=== PATIENT | female | born 1995 | race Caucasian/White ===

== ENCOUNTER 2017-05-16 19:15 | Emergency (ER) | payer OTHER ==
--- NOTE | 2017-05-16 21:51 | ED ---
Female Urogenital HPI - General Chief complaint: Urogenital Stated complaint: lower abdominal pain/early Time Seen by Provider: 05/16/17 21:20 Source: patient, RN notes reviewed Mode of arrival: ambulatory Limitations: no limitations - History of Present Illness Initial comments: This a 21-year-old female presents emergency Department chief complaint of left lower quadrant abdominal pain. Patient states she believes she is 6-7weeks and she is a 3. She has had prior ectopic with right tubal removal. Her VALANCE CUTTER is Dr. Johnson. Patient denies any nausea vomiting diarrhea. No dysuria. Patient does have some issues with constipation. Patient denies any vaginal bleeding or vaginal discharge. - Related Data Previous Rx's Medication Instructions Recorded Clindamycin HCl 300 mg PO BID #14 cap 05/16/17 Allergies Allergy/AdvReac Type Severity Reaction Status Date / Time latex Allergy Swelling Verified 05/16/17 21:44 Review of Systems ROS Statement: Those systems with pertinent positive or pertinent negative responses have been documented in the HPI. ROS Other: All systems not noted in ROS Statement are negative. Past Medical History Past Medical History: Musculoskeletal Disorder Additional Past Medical History / Comment(s): OVARIAN CYSTS, vaginal cysts. SCOLIOSIS; miscarriage, RA, ectopic. PID History of Any Multi-Drug Resistant Organisms: None Reported Additional Past Surgical History / Comment(s): DENTAL PROCEDURE, D and C, right tube removed Past Anesthesia/Blood Transfusion Reactions: No Reported Reaction Past Psychological History: Anxiety, Panic Disorder Smoking Status: Current every day smoker Past Alcohol Use History: Occasional Past Drug Use History: None Reported - Past Family History Mother Sister(s) Family Medical History: Cancer General Exam Limitations: no limitations General appearance: alert, in no apparent distress Head exam: Present: atraumatic, normocephalic, normal inspection Eye exam: Present: normal appearance, PERRL, EOMI. Absent: scleral icterus, conjunctival injection, periorbital swelling Neck exam: Present: normal inspection. Absent: tenderness, meningismus, lymphadenopathy Respiratory exam: Present: normal lung sounds bilaterally. Absent: respiratory distress, wheezes, rales, rhonchi, stridor Cardiovascular Exam: Present: regular rate, normal rhythm, normal heart sounds. Absent: systolic murmur, diastolic murmur, rubs, gallop, clicks GI/Abdominal exam: Present: soft, tenderness (Mild left lower quadrant tenderness), normal bowel sounds. Absent: distended, guarding, rebound, rigid External exam: Present: normal external exam, other (Exam performed with Harika POTTS) Speculum exam: Present: vaginal discharge (Copious white will follow or). Absent: cervical discharge, vaginal bleeding By manual exam: Present: normal by manual exam Back exam: Absent: CVA tenderness (R), CVA tenderness (L) Skin exam: Present: warm, dry, intact, normal color. Absent: rash Course Vital Signs 05/16/17 05/16/17 05/16/17 20:21 21:55 23:12 Temperature 97.7 F 98.4 F Pulse Rate 66 64 57 L Respiratory 16 18 18 Rate Blood Pressure 115/61 115/61 106/52 O2 Sat by Pulse 99 98 100 Oximetry Medical Decision Making - Medical Decision Making 21-year-old female presents for abdominal pain and . Patient had ultrasound which confirmed intrauterine 5 weeks 5 days. There is no comp case fracture seen. Patient will follow-up with Dr. Johnson her [employer] C[employer]TER. Return parameters were discussed. - Lab Data Result diagrams: 05/16/17 21:37 05/16/17 21:37 Lab Results 05/16/17 05/16/17 05/16/17 Range/Units 21:37 21:37 21:37 WBC 10.7 H (3.8-10.6) k/uL RBC 4.80 (3.80-5.40) m/uL Hgb 14.4 (11.4-16.0) gm/dL Hct 42.1 (34.0-46.0) % MCV 87.7 (80.0-100.0) fL MCH 30.0 (25.0-35.0) pg MCHC 34.2 (31.0-37.0) g/dL RDW 11.7 (11.5-15.5) % Plt Count 223 (150-450) k/uL Neutrophils % 69 % Lymphocytes % 21 % Monocytes % 6 % Eosinophils % 2 % Basophils % 0 % Neutrophils # 7.4 (1.3-7.7) k/uL Lymphocytes # 2.3 (1.0-4.8) k/uL Monocytes # 0.6 (0-1.0) k/uL Eosinophils # 0.2 (0-0.7) k/uL Basophils # 0.1 (0-0.2) k/uL Sodium 138 (137-145) mmol/L Potassium 3.8 (3.5-5.1) mmol/L Chloride 104 (98-107) mmol/L Carbon Dioxide 21 L (22-30) mmol/L Anion Gap 13 mmol/L BUN 11 (7-17) mg/dL Creatinine 0.60 (0.52-1.04) mg/dL Est GFR (CKD-EPI)AfAm >90 (>60 ml/min/1.73 sqM) Est GFR (CKD-EPI)NonAf >90 (>60 ml/min/1.73 sqM) Glucose 106 H (74-99) mg/dL Calcium 9.7 (8.4-10.2) mg/dL HCG, Quant 52459.2 mIU/mL Urine Color Urine Appearance (Clear) Urine pH (5.0-8.0) Ur Specific [place] (1.001-1.035) Urine Protein (Negative) Urine Glucose (UA) (Negative) Urine Ketones (Negative) Urine Blood (Negative) Urine Nitrite (Negative) Urine Bilirubin (Negative) Urine Urobilinogen (<2.0) mg/dL Ur Leukocyte Esterase (Negative) Blood Type O Positive Blood Type Recheck No 05/16/17 Range/Units 21:37 WBC (3.8-10.6) k/uL RBC (3.80-5.40) m/uL Hgb (11.4-16.0) gm/dL Hct (34.0-46.0) % MCV (80.0-100.0) fL MCH (25.0-35.0) pg MCHC (31.0-37.0) g/dL RDW (11.5-15.5) % Plt Count (150-450) k/uL Neutrophils % % Lymphocytes % % Monocytes % % Eosinophils % % Basophils % % Neutrophils # (1.3-7.7) k/uL Lymphocytes # (1.0-4.8) k/uL Monocytes # (0-1.0) k/uL Eosinophils # (0-0.7) k/uL Basophils # (0-0.2) k/uL Sodium (137-145) mmol/L Potassium (3.5-5.1) mmol/L Chloride (98-107) mmol/L Carbon Dioxide (22-30) mmol/L Anion Gap mmol/L BUN (7-17) mg/dL Creatinine (0.52-1.04) mg/dL Est GFR (CKD-EPI)AfAm (>60 ml/min/1.73 sqM) Est GFR (CKD-EPI)NonAf (>60 ml/min/1.73 sqM) Glucose (74-99) mg/dL Calcium (8.4-10.2) mg/dL HCG, Quant mIU/mL Urine Color Light Yellow Urine Appearance Clear (Clear) Urine pH 6.0 (5.0-8.0) Ur Specific [place] 1.010 (1.001-1.035) Urine Protein Negative (Negative) Urine Glucose (UA) Negative (Negative) Urine Ketones Negative (Negative) Urine Blood Negative (Negative) Urine Nitrite Negative (Negative) Urine Bilirubin Negative (Negative) Urine Urobilinogen <2.0 (<2.0) mg/dL Ur Leukocyte Esterase Negative (Negative) Blood Type Blood Type Recheck Disposition Clinical Impression: Abdominal with intrauterine , Bacterial vaginosis Disposition: HOME SELF-CARE Condition: Stable Instructions: Abdominal Pain in (ED) Additional Instructions: Please return to the Emergency Department if symptoms worsen or any other concerns. Prescriptions: Clindamycin HCl 300 mg PO BID #14 cap Referrals: Elena Hsu MD [Primary Care Provider] - 1-2 days Time of Disposition: 23:36
[2017-05-16 22:03] LABS: Basophils # (A) 0.1 k/uL (0-0.2); Basophils % (A) 0 %; Eosinophils # (A) 0.2 k/uL (0-0.7); Eosinophils % (A) 2 %; HCT 42.1 % (34.0-46.0); HGB 14.4 gm/dL (11.4-16.0); Lymphocytes # (A) 2.3 k/uL (1.0-4.8); Lymphocytes % (A) 21 %; MCHC 34.2 g/dL (31.0-37.0); MCV 87.7 fL (80.0-100.0); Mean Platelet Volume 8.2; Monocytes # (A) 0.6 k/uL (0-1.0); Monocytes % (A) 6 %; Neutrophils # (A) 7.4 k/uL (1.3-7.7); Neutrophils % (A) 69 %; Platelet Count 223 k/uL (150-450); RDW 11.7 % (11.5-15.5); WBC 10.7 k/uL (3.8-10.6)
[2017-05-16 22:04] LABS: Appearance,Urine Clear (Clear); Bilirubin,Urine Negative (Negative); Blood,Urine Negative (Negative); Color,Urine Light Yellow; Glucose,Urine (UA) Negative (Negative); Ketones,Urine Negative (Negative); Leukocyte Esterase,Urine Negative (Negative); Nitrite,Urine Negative (Negative); Protein,Urine Negative (Negative); Urobilinogen,Urine <2.0 mg/dL (<2.0)
[2017-05-16 22:10] LABS: Anion Gap 13 mmol/L; Blood Urea Nitrogen 11 mg/dL (7-17); Calcium 9.7 mg/dL (8.4-10.2); Carbon Dioxide 21 mmol/L (22-30); Chloride 104 mmol/L (98-107); Glucose 106 mg/dL (74-99); Potassium 3.8 mmol/L (3.5-5.1); Sodium 138 mmol/L (137-145)
[2017-05-16 22:52] LABS: HCG,Quantitative Serum 17494.2 mIU/mL
--- NOTE | 2017-05-16 23:08 | US ---
EXAMINATION TYPE: Transabdominal DATE OF EXAM: 05/10/17 COMPARISON: NONE CLINICAL HISTORY: pain. Cramping EXAM PERFORMED: Transvaginal (TV) and Transabdominal (TA) EXAM MEASUREMENTS: GESTATIONAL AGE / DATING Physician Established: Not yet established Dates by LMP: (6 weeks/6 days) EDC: 01/03/2018 Dates by First Scan: No previous this is first scan Dates by Current Scan for: (5 weeks/4 days) EDC: 01/12/2018 MATERNAL ANATOMY Uterus: 8.1x 4.8 x 6.5 cm Right Ovary: 2.5 x 1.2 x 2.6 cm Left Ovary: 3.9 x 2.0 x 2.6 cm Post CDS / Adnexa: wnl Presence of free fluid: No Presence of corpus luteal cyst: Yes Presence of subchorionic bleed: No GESTATION / SURVEY CRL: 0.2 cm (5 weeks/5 days) MSD: 1.1cm (5 weeks/2 days) Yolk Sac (normal less than 6mm): 0.3mm Heart Rate: 181 bpm Rhythm: Normal IUP: Viable IUP Date of LMP: 03/29/2017 Beta HcG (if available): Not available at this time Viable IUP seen 5wks 4Days KYARA 01/12/2018 HR 181 BPM IMPRESSION: Single living intrauterine fetus. The crown-rump length is 2 mm equal to 5 weeks 5 days. No complicat ing process seen. The KYARA is 01/12/2018.
[2017-05-16 23:44] VITALS: BP 107/62; PULSE 60; RESP 16; TEMP 97.8
[2017-05-18 14:03] LABS: C. trachomatis,PCR Negative (Neg,Equiv); Chlamydia trachomatis Source Vagina
[2017-05-18 14:08] LABS: N. gonorrhoeae,PCR Negative (Neg,Equiv); Neisseria Source Vagina
== END 2017-05-16 23:48 | disposition home or self-care (01) ==
LOC: EC 19:15
DX: O23.591 Infection of other part of genital tract in pregnancy, first trimester (principal); O99.331 Smoking (tobacco) complicating pregnancy, first trimester; F17.200 Nicotine dependence, unspecified, uncomplicated; Z3A.01 Less than 8 weeks gestation of pregnancy; Z91.040 Latex allergy status; Z87.42 Personal history of other diseases of the female genital tract
CPT/HCPCS: 36415; 76801; 76817; 80048; 81003; 84702; 85025; 86900; 86901; 87070; 87205; 87491; 87591; 87808; 99284

== ENCOUNTER 2017-06-02 10:31 | Emergency (ER) | payer OTHER ==
[2017-06-02 10:40] VITALS: BP 120/71; PULSE 74; RESP 20; TEMP 98.4
[2017-06-02] MEDS ORDERED: METOCLOPRAMIDE 5 MG/ML 2 ML VIAL IVP STA (10:51)
[2017-06-02] MEDS ORDERED: SODIUM CHLORIDE 0.9% 2,000 ML IV STA (10:51)
--- NOTE | 2017-06-02 10:53 | ED ---
Nausea/Vomiting/Diarrhea HPI - General Chief complaint: Nausea/Vomiting/Diarrhea Stated complaint: and vomiting x 3 days Time Seen by Provider: 06/02/17 10:41 Source: patient, RN notes reviewed Mode of arrival: ambulatory Limitations: no limitations - History of Present Illness Initial comments: This is a 21-year-old female presents emergency Department with chief complaint of nausea vomiting . Patient states that she is approximately 7-8 weeks states that she has been seen in the ER prior for issues. She had an ultrasound which confirmed . She states today or last few days she's had an extensive vomiting she feels dehydrated. She has an appointment with her [employer] on Tuesday. She states she is scheduled see Dr. Johnson. Patient is a 3. Patient denies any abdominal pain, vaginal bleeding, vaginal discharge. She denies any dysuria or hematuria. - Related Data Home Medications Medication Instructions Recorded Confirmed Bje-Zgsk-Idezu Acid 1 cap PO DAILY 06/02/17 06/02/17 [-U Capsule (formulary)] Previous Rx's Medication Instructions Recorded Metoclopramide [Reglan] 10 mg PO TID PRN #15 tab 06/02/17 Allergies Allergy/AdvReac Type Severity Reaction Status Date / Time latex Allergy Swelling Verified 06/02/17 10:56 Review of Systems ROS Statement: Those systems with pertinent positive or pertinent negative responses have been documented in the HPI. ROS Other: All systems not noted in ROS Statement are negative. Past Medical History Past Medical History: Musculoskeletal Disorder Additional Past Medical History / Comment(s): OVARIAN CYSTS, vaginal cysts. SCOLIOSIS; miscarriage, RA, ectopic. PID History of Any Multi-Drug Resistant Organisms: None Reported Additional Past Surgical History / Comment(s): DENTAL PROCEDURE, D and C, right tube removed Past Anesthesia/Blood Transfusion Reactions: No Reported Reaction Past Psychological History: Anxiety, Panic Disorder Smoking Status: Current some day smoker Past Alcohol Use History: Occasional Past Drug Use History: None Reported - Past Family History Mother Sister(s) Family Medical History: Cancer General Exam Limitations: no limitations General appearance: alert, in no apparent distress Head exam: Present: atraumatic, normocephalic, normal inspection Respiratory exam: Present: normal lung sounds bilaterally. Absent: respiratory distress, wheezes, rales, rhonchi, stridor Cardiovascular Exam: Present: regular rate, normal rhythm, normal heart sounds. Absent: systolic murmur, diastolic murmur, rubs, gallop, clicks GI/Abdominal exam: Present: soft, normal bowel sounds. Absent: distended, tenderness, guarding, rebound, rigid Back exam: Absent: CVA tenderness (R), CVA tenderness (L) Neurological exam: Present: alert, oriented X3, CN II-XII intact Skin exam: Present: warm, dry, intact, normal color. Absent: rash Course Vital Signs 06/02/17 10:38 Temperature 98.4 F Pulse Rate 74 Respiratory 20 Rate Blood Pressure 120/71 O2 Sat by Pulse 99 Oximetry Medical Decision Making - Medical Decision Making This is a 21-year-old female presented for nausea vomiting . Patient was hydrated, given antiemetics that she feels 100% better. She is eating crackers in the room difficulty. Patient has a follow-up appointment on Tuesday with her own joint neutrophils were discussed. - Lab Data Result diagrams: 06/02/17 11:13 06/02/17 11:13 Lab Results 06/02/17 06/02/17 06/02/17 Range/Units 11:13 11:13 11:13 WBC 11.7 H (3.8-10.6) k/uL RBC 4.96 (3.80-5.40) m/uL Hgb 15.2 (11.4-16.0) gm/dL Hct 43.5 (34.0-46.0) % MCV 87.8 (80.0-100.0) fL MCH 30.7 (25.0-35.0) pg MCHC 35.0 (31.0-37.0) g/dL RDW 11.7 (11.5-15.5) % Plt Count 216 (150-450) k/uL Neutrophils % 74 % Lymphocytes % 18 % Monocytes % 5 % Eosinophils % 2 % Basophils % 0 % Neutrophils # 8.6 H (1.3-7.7) k/uL Lymphocytes # 2.0 (1.0-4.8) k/uL Monocytes # 0.6 (0-1.0) k/uL Eosinophils # 0.2 (0-0.7) k/uL Basophils # 0.0 (0-0.2) k/uL Sodium 141 (137-145) mmol/L Potassium 3.9 (3.5-5.1) mmol/L Chloride 105 (98-107) mmol/L Carbon Dioxide 21 L (22-30) mmol/L Anion Gap 15 mmol/L BUN 7 (7-17) mg/dL Creatinine 0.60 (0.52-1.04) mg/dL Est GFR (CKD-EPI)AfAm >90 (>60 ml/min/1.73 sqM) Est GFR (CKD-EPI)NonAf >90 (>60 ml/min/1.73 sqM) Glucose 88 (74-99) mg/dL Calcium 9.9 (8.4-10.2) mg/dL Total Bilirubin 0.6 (0.2-1.3) mg/dL AST 22 (14-36) U/L ALT 24 (9-52) U/L Alkaline Phosphatase 60 (38-126) U/L Total Protein 7.3 (6.3-8.2) g/dL Albumin 4.4 (3.5-5.0) g/dL Amylase 63 (30-110) U/L Lipase 36 (23-300) U/L Urine Color Yellow Urine Appearance Clear (Clear) Urine pH 6.5 (5.0-8.0) Ur Specific [place] 1.024 (1.001-1.035) Urine Protein 1+ H (Negative) Urine Glucose (UA) Negative (Negative) Urine Ketones 2+ H (Negative) Urine Blood Negative (Negative) Urine Nitrite Negative (Negative) Urine Bilirubin Negative (Negative) Urine Urobilinogen 2.0 (<2.0) mg/dL Ur Leukocyte Esterase Small H (Negative) Urine RBC 1 (0-5) /hpf Urine WBC 2 (0-5) /hpf Ur Squamous Epith Cells 8 H (0-4) /hpf Urine Bacteria Rare H (None) /hpf Urine Mucus Few H (None) /hpf Disposition Clinical Impression: Nausea/vomiting in Disposition: HOME SELF-CARE Condition: Stable Instructions: Nausea and Vomiting in (ED) Additional Instructions: Please return to the Emergency Department if symptoms worsen or any other concerns. Prescriptions: Metoclopramide [Reglan] 10 mg PO TID PRN #15 tab PRN Reason: GERD Is patient prescribed a controlled substance at d/c from ED?: No Referrals: Elena Hsu MD [Primary Care Provider] - 1-2 days Miguelina Johnson DO [Doctor of Osteopathic Medicine] - 1-2 days Time of Disposition: 12:29
[2017-06-02 11:30] LABS: Basophils % (A) 0 %; Eosinophils # (A) 0.2 k/uL (0-0.7); Eosinophils % (A) 2 %; HCT 43.5 % (34.0-46.0); HGB 15.2 gm/dL (11.4-16.0); Lymphocytes % (A) 18 %; MCH 30.7 pg (25.0-35.0); MCV 87.8 fL (80.0-100.0); Mean Platelet Volume 7.2; Monocytes # (A) 0.6 k/uL (0-1.0); Monocytes % (A) 5 %; Neutrophils # (A) 8.6 k/uL (1.3-7.7); Neutrophils % (A) 74 %; Platelet Count 216 k/uL (150-450); RBC 4.96 m/uL (3.80-5.40); RDW 11.7 % (11.5-15.5); WBC 11.7 k/uL (3.8-10.6)
[2017-06-02 11:38] LABS: Appearance,Urine Clear (Clear); Bacteria,Urine Rare /hpf; Bilirubin,Urine Negative (Negative); Blood,Urine Negative (Negative); Color,Urine Yellow; Glucose,Urine (UA) Negative (Negative); Ketones,Urine 2+ (Negative); Leukocyte Esterase,Urine Small (Negative); Mucus,Urine Few /hpf; Nitrite,Urine Negative (Negative); PH, Urine 6.5 (5.0-8.0); Protein,Urine 1+ (Negative); RBC,Urine 1 /hpf (0-5); Specific Gravity,Urine 1.024 (1.001-1.035); Squamous Epithelial Cell,Urine 8 /hpf (0-4); WBC,Urine 2 /hpf (0-5)
[2017-06-02 11:46] LABS: ALT 24 U/L (9-52); AST 22 U/L (14-36); Albumin 4.4 g/dL (3.5-5.0); Alkaline Phosphatase 60 U/L (38-126); Amylase 63 U/L (30-110); Anion Gap 15 mmol/L; Blood Urea Nitrogen 7 mg/dL (7-17); Calcium 9.9 mg/dL (8.4-10.2); Carbon Dioxide 21 mmol/L (22-30); Chloride 105 mmol/L (98-107); Glucose 88 mg/dL (74-99); Lipase 36 U/L (23-300); Potassium 3.9 mmol/L (3.5-5.1); Sodium 141 mmol/L (137-145); Total Bilirubin 0.6 mg/dL (0.2-1.3); Total Protein 7.3 g/dL (6.3-8.2)
== END 2017-06-02 13:04 | disposition home or self-care (01) ==
LOC: EC 10:31
DX: O21.0 Mild hyperemesis gravidarum (principal); O99.331 Smoking (tobacco) complicating pregnancy, first trimester; F17.200 Nicotine dependence, unspecified, uncomplicated; Z3A.01 Less than 8 weeks gestation of pregnancy; Z91.040 Latex allergy status
CPT/HCPCS: 99284; 96374; 96361 ×2; 36415; 80053; 82150; 83690; 85025; 81001; 84702; 87086; J2765

== ENCOUNTER 2017-06-16 07:15 | Emergency (ER) | payer OTHER ==
[2017-06-16 07:26] VITALS: TEMP 98.2
[2017-06-16] MEDS ORDERED: SODIUM CHLORIDE 0.9% 1,000 ML IV STA ×2 (07:58)
[2017-06-16] MEDS ORDERED: METOCLOPRAMIDE 5 MG/ML 2 ML VIAL IVP STA (07:58)
[2017-06-16 08:11] LABS: Basophils % (A) 0 %; Eosinophils # (A) 0.2 k/uL (0-0.7); Eosinophils % (A) 2 %; HCT 41.2 % (34.0-46.0); HGB 14.7 gm/dL (11.4-16.0); Lymphocytes # (A) 1.3 k/uL (1.0-4.8); Lymphocytes % (A) 11 %; MCH 30.2 pg (25.0-35.0); MCHC 35.6 g/dL (31.0-37.0); MCV 84.8 fL (80.0-100.0); Mean Platelet Volume 7.7; Monocytes # (A) 0.5 k/uL (0-1.0); Monocytes % (A) 4 %; Neutrophils % (A) 82 %; Platelet Count 211 k/uL (150-450); RBC 4.86 m/uL (3.80-5.40); RDW 11.7 % (11.5-15.5); WBC 12.1 k/uL (3.8-10.6)
[2017-06-16 08:14] LABS: Appearance,Urine Cloudy (Clear); Bilirubin,Urine Negative (Negative); Blood,Urine Negative (Negative); Calcium Oxalate Crystals,Urine Occasional /hpf; Color,Urine Yellow; Glucose,Urine (UA) Negative (Negative); Ketones,Urine Negative (Negative); Leukocyte Esterase,Urine Moderate (Negative); Mucus,Urine Many /hpf; Nitrite,Urine Negative (Negative); PH, Urine 5.5 (5.0-8.0); Protein,Urine 1+ (Negative); RBC,Urine 2 /hpf (0-5); Specific Gravity,Urine 1.029 (1.001-1.035); Squamous Epithelial Cell,Urine 8 /hpf (0-4); Urobilinogen,Urine <2.0 mg/dL (<2.0); WBC,Urine 6 /hpf (0-5)
[2017-06-16 08:21] LABS: ALT 25 U/L (9-52); AST 27 U/L (14-36); Albumin 4.2 g/dL (3.5-5.0); Alkaline Phosphatase 62 U/L (38-126); Amylase 65 U/L (30-110); Anion Gap 15 mmol/L; Blood Urea Nitrogen 6 mg/dL (7-17); Calcium 9.3 mg/dL (8.4-10.2); Carbon Dioxide 20 mmol/L (22-30); Chloride 105 mmol/L (98-107); Glucose 93 mg/dL (74-99); Lipase 44 U/L (23-300); Potassium 3.9 mmol/L (3.5-5.1); Sodium 140 mmol/L (137-145); Total Bilirubin 0.6 mg/dL (0.2-1.3); Total Protein 6.9 g/dL (6.3-8.2)
--- NOTE | 2017-06-16 08:28 | ED ---
General Adult HPI - General Chief complaint: Nausea/Vomiting/Diarrhea Stated complaint: Vomiting-10 weeks Time Seen by Provider: 06/16/17 07:49 Source: patient, RN notes reviewed, old records reviewed Mode of arrival: ambulatory Limitations: no limitations - History of Present Illness Initial comments: 21-year-old female presents weren't surrounded a chief complaint of nausea and vomiting and diarrhea for one day. Patient with a symptoms throughout her . Worse for the past day. This is her fourth . No live births. Patient states that she sees Dr. Johnson. Has history of right oophorectomy after tubal ligation. Patient states that she has just been feeling very ill and dehydrated. She did try to take 2 regular prescribed her earlier in this . She states she continued to vomit. Patient denies any significant pain associated with this. She denies any chest pain shortness of breath. She does report that she had scant amount of vaginal bleeding today. - Related Data Home Medications Medication Instructions Recorded Confirmed Ahv-Hqvs-Kuefb Acid 1 cap PO DAILY 06/02/17 06/16/17 [-U Capsule (formulary)] Allergies Allergy/AdvReac Type Severity Reaction Status Date / Time latex Allergy Swelling Verified 06/16/17 07:37 Review of Systems ROS Statement: Those systems with pertinent positive or pertinent negative responses have been documented in the HPI. ROS Other: All systems not noted in ROS Statement are negative. Past Medical History Past Medical History: Musculoskeletal Disorder Additional Past Medical History / Comment(s): OVARIAN CYSTS, vaginal cysts. SCOLIOSIS; miscarriage, RA, ectopic. PID History of Any Multi-Drug Resistant Organisms: None Reported Additional Past Surgical History / Comment(s): DENTAL PROCEDURE, D and C, right tube removed Past Anesthesia/Blood Transfusion Reactions: No Reported Reaction Past Psychological History: Anxiety, Panic Disorder Smoking Status: Current some day smoker Past Alcohol Use History: Occasional Past Drug Use History: None Reported - Past Family History Mother Sister(s) Family Medical History: Cancer General Exam - General Exam Comments Initial Comments: 21-year-old female. Alert. No distress. Limitations: no limitations General appearance: alert, in no apparent distress Head exam: Present: atraumatic, normocephalic, normal inspection Eye exam: Present: normal appearance, PERRL, EOMI. Absent: scleral icterus, conjunctival injection, periorbital swelling ENT exam: Present: normal exam, mucous membranes moist Neck exam: Present: normal inspection. Absent: tenderness, meningismus, lymphadenopathy Respiratory exam: Present: normal lung sounds bilaterally. Absent: respiratory distress, wheezes, rales, rhonchi, stridor Cardiovascular Exam: Present: regular rate, normal rhythm, normal heart sounds. Absent: systolic murmur, diastolic murmur, rubs, gallop, clicks GI/Abdominal exam: Present: soft, normal bowel sounds. Absent: distended, tenderness, guarding, rebound, rigid Extremities exam: Present: normal inspection, full ROM, normal capillary refill. Absent: tenderness, pedal edema, joint swelling, calf tenderness Back exam: Present: normal inspection Neurological exam: Present: alert, oriented X3, CN II-XII intact Psychiatric exam: Present: normal affect, normal mood Course Vital Signs 06/16/17 07:24 Temperature 98.2 F Pulse Rate 95 Respiratory 20 Rate Blood Pressure 121/71 O2 Sat by Pulse 98 Oximetry Medical Decision Making - Lab Data Result diagrams: 06/16/17 07:30 06/16/17 07:30 Lab Results 06/16/17 06/16/17 06/16/17 Range/Units 07:30 07:30 07:30 WBC 12.1 H (3.8-10.6) k/uL RBC 4.86 (3.80-5.40) m/uL Hgb 14.7 (11.4-16.0) gm/dL Hct 41.2 (34.0-46.0) % MCV 84.8 (80.0-100.0) fL MCH 30.2 (25.0-35.0) pg MCHC 35.6 (31.0-37.0) g/dL RDW 11.7 (11.5-15.5) % Plt Count 211 (150-450) k/uL Neutrophils % 82 % Lymphocytes % 11 % Monocytes % 4 % Eosinophils % 2 % Basophils % 0 % Neutrophils # 10.0 H (1.3-7.7) k/uL Lymphocytes # 1.3 (1.0-4.8) k/uL Monocytes # 0.5 (0-1.0) k/uL Eosinophils # 0.2 (0-0.7) k/uL Basophils # 0.0 (0-0.2) k/uL Sodium 140 (137-145) mmol/L Potassium 3.9 (3.5-5.1) mmol/L Chloride 105 (98-107) mmol/L Carbon Dioxide 20 L (22-30) mmol/L Anion Gap 15 mmol/L BUN 6 L (7-17) mg/dL Creatinine 0.51 L (0.52-1.04) mg/dL Est GFR (CKD-EPI)AfAm >90 (>60 ml/min/1.73 sqM) Est GFR (CKD-EPI)NonAf >90 (>60 ml/min/1.73 sqM) Glucose 93 (74-99) mg/dL Calcium 9.3 (8.4-10.2) mg/dL Total Bilirubin 0.6 (0.2-1.3) mg/dL AST 27 (14-36) U/L ALT 25 (9-52) U/L Alkaline Phosphatase 62 (38-126) U/L Total Protein 6.9 (6.3-8.2) g/dL Albumin 4.2 (3.5-5.0) g/dL Amylase 65 (30-110) U/L Lipase 44 (23-300) U/L Urine Color Urine Appearance (Clear) Urine pH (5.0-8.0) Ur Specific [place] (1.001-1.035) Urine Protein (Negative) Urine Glucose (UA) (Negative) Urine Ketones (Negative) Urine Blood (Negative) Urine Nitrite (Negative) Urine Bilirubin (Negative) Urine Urobilinogen (<2.0) mg/dL Ur Leukocyte Esterase (Negative) Urine RBC (0-5) /hpf Urine WBC (0-5) /hpf Ur Squamous Epith Cells (0-4) /hpf Calcium Oxalate Crystal (None) /hpf Urine Mucus (None) /hpf Blood Type O Positive Blood Type Recheck No 06/16/17 Range/Units 07:30 WBC (3.8-10.6) k/uL RBC (3.80-5.40) m/uL Hgb (11.4-16.0) gm/dL Hct (34.0-46.0) % MCV (80.0-100.0) fL MCH (25.0-35.0) pg MCHC (31.0-37.0) g/dL RDW (11.5-15.5) % Plt Count (150-450) k/uL Neutrophils % % Lymphocytes % % Monocytes % % Eosinophils % % Basophils % % Neutrophils # (1.3-7.7) k/uL Lymphocytes # (1.0-4.8) k/uL Monocytes # (0-1.0) k/uL Eosinophils # (0-0.7) k/uL Basophils # (0-0.2) k/uL Sodium (137-145) mmol/L Potassium (3.5-5.1) mmol/L Chloride (98-107) mmol/L Carbon Dioxide (22-30) mmol/L Anion Gap mmol/L BUN (7-17) mg/dL Creatinine (0.52-1.04) mg/dL Est GFR (CKD-EPI)AfAm (>60 ml/min/1.73 sqM) Est GFR (CKD-EPI)NonAf (>60 ml/min/1.73 sqM) Glucose (74-99) mg/dL Calcium (8.4-10.2) mg/dL Total Bilirubin (0.2-1.3) mg/dL AST (14-36) U/L ALT (9-52) U/L Alkaline Phosphatase (38-126) U/L Total Protein (6.3-8.2) g/dL Albumin (3.5-5.0) g/dL Amylase (30-110) U/L Lipase (23-300) U/L Urine Color Yellow Urine Appearance Cloudy H (Clear) Urine pH 5.5 (5.0-8.0) Ur Specific [place] 1.029 (1.001-1.035) Urine Protein 1+ H (Negative) Urine Glucose (UA) Negative (Negative) Urine Ketones Negative (Negative) Urine Blood Negative (Negative) Urine Nitrite Negative (Negative) Urine Bilirubin Negative (Negative) Urine Urobilinogen <2.0 (<2.0) mg/dL Ur Leukocyte Esterase Moderate H (Negative) Urine RBC 2 (0-5) /hpf Urine WBC 6 H (0-5) /hpf Ur Squamous Epith Cells 8 H (0-4) /hpf Calcium Oxalate Crystal Occasional H (None) /hpf Urine Mucus Many H (None) /hpf Blood Type Blood Type Recheck Disposition Clinical Impression: Nausea and vomiting during Disposition: HOME SELF-CARE Condition: Good Instructions: Acute Nausea and Vomiting (ED) Additional Instructions: Patient has a follow-up with primary care provider. Take previously prescribed medication. Return to emergency department if any alarming signs symptoms occur. Is patient prescribed a controlled substance at d/c from ED?: No If prescribed controlled substance>3 days was MAPS reviewed?: No When asked, does pt state using other controlled substances?: No Referrals: None,Stated [Primary Care Provider] - 1-2 days Time of Disposition: 09:19
[2017-06-16 09:30] VITALS: BP 119/75; PULSE 90; RESP 18
--- NOTE | 2017-06-16 10:14 | US ---
EXAMINATION TYPE: Transabdominal DATE OF EXAM: 06/16/17 COMPARISON: US May 16, 2017 CLINICAL HISTORY: Pain. Vomiting x 1.5 days; smoker; ; prior right ectopic with right t ube removed EXAM PERFORMED: Transabdominal (TA) EXAM MEASUREMENTS: GESTATIONAL AGE / DATING Physician Established: (10 weeks/0 days) EDC: 01/12/2018 Dates by LMP: ( 11weeks/2days) EDC: 01/03/2018 Dates by First Scan: (10 weeks/0 days) EDC: 01/12/2018 Dates by Current Scan for: (10 weeks/1 day) EDC: 01/11/2018 MATERNAL ANATOMY Uterus: 11.9 x 7.6 x 7.1cm Right Ovary: 2.4 x 1.2 x 1.1cm Left Ovary: 3.0 x 2.2 x 1.6cm Post CDS / Adnexa: wnl Presence of free fluid: no Presence of corpus luteal cyst: not seen today Presence of subchorionic bleed: no GESTATION / SURVEY CRL: 3.3cm (10 weeks/1 day) Yolk Sac (normal less than 6mm): 4.3mm Heart Rate: 155 bpm Rhythm: normal IUP: Single, viable IUP Date of LMP: 01/03/2018 Beta HcG (if available): NA Single live intrauterine gestation is redemonstrated as gestational sac, yolk sac, and pole are seen. No free fluid is seen in pelvic cul-de-sac. Both ovaries are seen. There is no suspicious extraovarian adnexal masses noted. IMPRESSION: Single live intrauterine gestation is seen, mean crown-rump length is 3.3 cm corresponding to 10 week 1 day old fetus. No complicating process identified currently. Satisfactory interval progression not ed.
== END 2017-06-16 09:20 | disposition home or self-care (01) ==
LOC: EC 07:15
DX: O21.9 Vomiting of pregnancy, unspecified (principal); O20.9 Hemorrhage in early pregnancy, unspecified; O99.89 Other specified diseases and conditions complicating pregnancy, childbirth and the puerperium; R19.7 Diarrhea, unspecified; O99.331 Smoking (tobacco) complicating pregnancy, first trimester; F17.200 Nicotine dependence, unspecified, uncomplicated; Z79.899 Other long term (current) drug therapy; Z91.040 Latex allergy status; Z90.721 Acquired absence of ovaries, unilateral; Z98.51 Tubal ligation status; Z3A.10 10 weeks gestation of pregnancy
CPT/HCPCS: 36415; 86900; 86901; 80053; 82150; 83690; 85025; 81001; 84702; 76801; 99284; 96374; 96361; J2765

== ENCOUNTER → 2017-06-20 | Outpatient (CLI) | payer OTHER ==
--- NOTE | 2017-06-21 08:38 | US ---
EXAMINATION TYPE: Transabdominal DATE OF EXAM: 05/10/17 COMPARISON: US's CLINICAL HISTORY: O26.20 care for patient with recurrent. EXAM PERFORMED: Transabdominal (TA) EXAM MEASUREMENTS: GESTATIONAL AGE / DATING Physician Established: (10 weeks/4 days) EDC: 01/12/2018 Dates by LMP: (11 weeks/5 days) EDC: 01/03/2018 Dates by First Scan: (10 weeks/4 days) EDC: 01/12/2018 Dates by Current Scan for: (11 weeks/2 days) EDC: 01/07/2018 MATERNAL ANATOMY Uterus: 12.2 x 6.3 x 8.0 Right Ovary: 3.4 x 1.3 x 2.7 Left Ovary: 3.1 x 2.2 x 3.1 Post CDS / Adnexa: wnl Presence of free fluid: none GESTATION / SURVEY CRL: 4.5 (11 weeks/2 days) Yolk Sac (normal less than 6mm): 0.5 cm Heart Rate: 161 bpm Rhythm: Normal IUP: Live IUP Date of LMP: Live IUP that correlates with prior exams Uterine contraction is incidentally noted posteriorly IMPRESSION: Single live intrauterine with a calculated sonographic age of 11 weeks and 2 days and estim ated date of delivery of 01/07/2018, concordant with menstrual age.
== END | disposition home or self-care (01) ==
LOC: RADUSWWP 16:31
PROVIDERS: ATTEND Obstetrics & Gynecology
DX: O26.20 Pregnancy care for patient with recurrent pregnancy loss, unspecified trimester (principal); Z3A.11 11 weeks gestation of pregnancy
CPT/HCPCS: 76801

== ENCOUNTER 2017-07-28 11:51 | Emergency (ER) | payer OTHER ==
[2017-07-28 11:56] VITALS: BP 112/60
[2017-07-28] MEDS ORDERED: SODIUM CHLORIDE 0.9% 1,000 ML IV STA (12:01)
--- NOTE | 2017-07-28 12:18 | ED ---
Abdominal Pain HPI - General Chief Complaint: Abdominal Pain Stated Complaint: 16 weeks preg back and abdominal pain Time Seen by Provider: 07/28/17 12:01 Source: patient, RN notes reviewed Mode of arrival: ambulatory Limitations: no limitations - History of Present Illness Initial Comments: This is a 21-year-old female presents emergency Department chief complaint of abdominal pain, back pain and . Patient states she's partially 16 weeks she is a 3 and states her TUBE SKIVER is Dr. Johnson. She states her last few days to week she's had increasing pain seems to radiate from her abdomen to her back. She denies any dysuria but has urinary frequency. Denies any vaginal bleeding or vaginal discharge. Patient states that she reports no fever no chills denies any current nausea vomiting. Patient reports to having regular bowel movements denies any melena or hematochezia - Related Data Home Medications Medication Instructions Recorded Confirmed Ubs-Nfxs-Clcyk Acid 1 cap PO DAILY 06/02/17 07/28/17 [-U Capsule (formulary)] Acetaminophen [Tylenol] 650 mg PO Q4H PRN 07/28/17 07/28/17 Allergies Allergy/AdvReac Type Severity Reaction Status Date / Time latex Allergy Swelling Verified 07/28/17 12:10 Review of Systems ROS Statement: Those systems with pertinent positive or pertinent negative responses have been documented in the HPI. ROS Other: All systems not noted in ROS Statement are negative. Past Medical History Past Medical History: Musculoskeletal Disorder Additional Past Medical History / Comment(s): OVARIAN CYSTS, vaginal cysts. SCOLIOSIS; miscarriage x2, RA, ectopic. PID History of Any Multi-Drug Resistant Organisms: None Reported Additional Past Surgical History / Comment(s): DENTAL PROCEDURE, D and C, right tube removed Past Anesthesia/Blood Transfusion Reactions: No Reported Reaction Past Psychological History: Anxiety, Panic Disorder Smoking Status: Current some day smoker Past Alcohol Use History: Occasional Past Drug Use History: None Reported - Past Family History Mother Sister(s) Family Medical History: Cancer General Exam Limitations: no limitations General appearance: alert, in no apparent distress Head exam: Present: atraumatic, normocephalic, normal inspection Eye exam: Present: normal appearance, PERRL, EOMI. Absent: scleral icterus, conjunctival injection, periorbital swelling ENT exam: Present: normal exam, normal oropharynx, mucous membranes moist Neck exam: Present: normal inspection. Absent: tenderness, meningismus, lymphadenopathy Respiratory exam: Present: normal lung sounds bilaterally. Absent: respiratory distress, wheezes, rales, rhonchi, stridor Cardiovascular Exam: Present: regular rate, normal rhythm, normal heart sounds. Absent: systolic murmur, diastolic murmur, rubs, gallop, clicks GI/Abdominal exam: Present: soft, normal bowel sounds. Absent: distended, tenderness, guarding, rebound, rigid Skin exam: Present: warm, dry, intact, normal color. Absent: rash Course Vital Signs 07/28/17 11:52 Temperature 98.2 F Pulse Rate 75 Respiratory 18 Rate Blood Pressure 112/60 O2 Sat by Pulse 98 Oximetry Medical Decision Making - Medical Decision Making 21-year-old female presented emergency department for concerns for abdominal pain . Patient stands or exudates U ligament pain patient has a normal lab work, urinalysis and normal heart tones. Patient is a worried patient with her secondary to multiple prior miscarriages. - Lab Data Result diagrams: 07/28/17 12:40 07/28/17 12:40 Lab Results 07/28/17 07/28/17 07/28/17 Range/Units 12:40 12:40 12:40 WBC 12.2 H (3.8-10.6) k/uL RBC 4.39 (3.80-5.40) m/uL Hgb 13.2 (11.4-16.0) gm/dL Hct 38.0 (34.0-46.0) % MCV 86.5 (80.0-100.0) fL MCH 30.1 (25.0-35.0) pg MCHC 34.8 (31.0-37.0) g/dL RDW 12.6 (11.5-15.5) % Plt Count 231 (150-450) k/uL Neutrophils % 75 % Lymphocytes % 16 % Monocytes % 6 % Eosinophils % 1 % Basophils % 0 % Neutrophils # 9.1 H (1.3-7.7) k/uL Lymphocytes # 2.0 (1.0-4.8) k/uL Monocytes # 0.7 (0-1.0) k/uL Eosinophils # 0.2 (0-0.7) k/uL Basophils # 0.0 (0-0.2) k/uL Sodium 137 (137-145) mmol/L Potassium 4.1 (3.5-5.1) mmol/L Chloride 105 (98-107) mmol/L Carbon Dioxide 22 (22-30) mmol/L Anion Gap 10 mmol/L BUN 6 L (7-17) mg/dL Creatinine 0.60 (0.52-1.04) mg/dL Est GFR (CKD-EPI)AfAm >90 (>60 ml/min/1.73 sqM) Est GFR (CKD-EPI)NonAf >90 (>60 ml/min/1.73 sqM) Glucose 77 (74-99) mg/dL Calcium 9.8 (8.4-10.2) mg/dL Total Bilirubin 0.2 (0.2-1.3) mg/dL AST 23 (14-36) U/L ALT 27 (9-52) U/L Alkaline Phosphatase 56 (38-126) U/L Total Protein 6.8 (6.3-8.2) g/dL Albumin 4.0 (3.5-5.0) g/dL Amylase 64 (30-110) U/L Lipase 50 (23-300) U/L Urine Color Yellow Urine Appearance Clear (Clear) Urine pH 6.0 (5.0-8.0) Ur Specific [place] 1.015 (1.001-1.035) Urine Protein Negative (Negative) Urine Glucose (UA) Negative (Negative) Urine Ketones Negative (Negative) Urine Blood Negative (Negative) Urine Nitrite Negative (Negative) Urine Bilirubin Negative (Negative) Urine Urobilinogen <2.0 (<2.0) mg/dL Ur Leukocyte Esterase Large H (Negative) Urine RBC 1 (0-5) /hpf Urine WBC 2 (0-5) /hpf Ur Squamous Epith Cells 3 (0-4) /hpf Urine Mucus Rare H (None) /hpf Disposition Clinical Impression: Abdominal pain during Disposition: HOME SELF-CARE Condition: Stable Instructions: Abdominal Pain in (ED) Additional Instructions: Please return to the Emergency Department if symptoms worsen or any other concerns. Is patient prescribed a controlled substance at d/c from ED?: No Referrals: None,Stated [Primary Care Provider] - 1-2 days Time of Disposition: 13:41
[2017-07-28 13:02] LABS: Basophils % (A) 0 %; Eosinophils # (A) 0.2 k/uL (0-0.7); Eosinophils % (A) 1 %; HGB 13.2 gm/dL (11.4-16.0); Lymphocytes % (A) 16 %; MCH 30.1 pg (25.0-35.0); MCHC 34.8 g/dL (31.0-37.0); MCV 86.5 fL (80.0-100.0); Mean Platelet Volume 7.7; Monocytes # (A) 0.7 k/uL (0-1.0); Monocytes % (A) 6 %; Neutrophils # (A) 9.1 k/uL (1.3-7.7); Neutrophils % (A) 75 %; Platelet Count 231 k/uL (150-450); RBC 4.39 m/uL (3.80-5.40); RDW 12.6 % (11.5-15.5); WBC 12.2 k/uL (3.8-10.6)
[2017-07-28 13:11] LABS: ALT 27 U/L (9-52); AST 23 U/L (14-36); Alkaline Phosphatase 56 U/L (38-126); Amylase 64 U/L (30-110); Anion Gap 10 mmol/L; Blood Urea Nitrogen 6 mg/dL (7-17); Calcium 9.8 mg/dL (8.4-10.2); Carbon Dioxide 22 mmol/L (22-30); Chloride 105 mmol/L (98-107); Glucose 77 mg/dL (74-99); Lipase 50 U/L (23-300); Potassium 4.1 mmol/L (3.5-5.1); Sodium 137 mmol/L (137-145); Total Bilirubin 0.2 mg/dL (0.2-1.3); Total Protein 6.8 g/dL (6.3-8.2)
[2017-07-28 13:16] LABS: Appearance,Urine Clear (Clear); Bilirubin,Urine Negative (Negative); Blood,Urine Negative (Negative); Color,Urine Yellow; Glucose,Urine (UA) Negative (Negative); Ketones,Urine Negative (Negative); Leukocyte Esterase,Urine Large (Negative); Mucus,Urine Rare /hpf; Nitrite,Urine Negative (Negative); Protein,Urine Negative (Negative); RBC,Urine 1 /hpf (0-5); Specific Gravity,Urine 1.015 (1.001-1.035); Squamous Epithelial Cell,Urine 3 /hpf (0-4); Urobilinogen,Urine <2.0 mg/dL (<2.0); WBC,Urine 2 /hpf (0-5)
[2017-07-28 14:05] VITALS: PULSE 73; RESP 16; TEMP 98.8
== END 2017-07-28 14:15 | disposition home or self-care (01) ==
LOC: EC 11:51
DX: O26.892 Other specified pregnancy related conditions, second trimester (principal); R10.9 Unspecified abdominal pain; O99.89 Other specified diseases and conditions complicating pregnancy, childbirth and the puerperium; M54.9 Dorsalgia, unspecified; R35.0 Frequency of micturition; O99.332 Smoking (tobacco) complicating pregnancy, second trimester; F17.200 Nicotine dependence, unspecified, uncomplicated; Z79.899 Other long term (current) drug therapy; Z91.040 Latex allergy status; Z3A.16 16 weeks gestation of pregnancy
CPT/HCPCS: 36415; 80053; 81001; 82150; 83690; 85025; 96360; 99284

== ENCOUNTER 2017-11-04 13:47 | Outpatient (CLI) | payer OTHER ==
[2017-11-04 14:38] VITALS: BP 116/56; PULSE 93; RESP 16; TEMP 97.4
--- NOTE | 2017-11-08 06:56 | P.MSEPDOC ---
Presenting Problems - Arrival Data Date of Arrival on Unit: 11/04/17 Time of Arrival on Unit: 14:25 Mode of Transport: Ambulatory - Complaint OB-Reason for Admission/Chief Complaint: Decreased Movement Medical History - Information : 4 Para: 0 Term: 0 : 0 Abortions: Spontaneous or Elective: 0 Number of Living Children: 0 - Gestational Age Gestational Age by KYARA (wks/days): 30 Weeks and 1 Days - History Complications: GDM Review of Systems - Review of Systems Constitutional: No problems Breast: No problems ENT: No problems Cardiovascular: No problems Respiratory: No problems Gastrointestinal: No problems Genitourinary: No problems Musculoskeletal: No problems Neurological: No problems Skin: No problems Vital Signs - Temperature Temperature: 97.4 F Temperature Source: Temporal Artery Scan - Pulse Right Sitting Brachial Pulse Rate: 93 Pulse Assessment Method: Automatic Cuff - Respirations Respiratory Rate: 16 O2 Sat by Pulse Oximetry: 98 - Blood Pressure Right Arm Blood Pressure: 116/56 Blood Pressure Mean: 76 Blood Pressure Source: Automatic Cuff Medical Screen Scoring (Pre) - Cervical Exam Dilation: Exam Deferred Effacement: Exam Deferred Membranes: Intact - Uterine Contractions Frequency: N/A Duration: N/A Intensity: N/A - Maternal Vital Signs Maternal Temperature: N/A Maternal Blood Pressure: N/A Signs of Preeclampsia: N/A Maternal Respirations: N/A - Maternal Trauma Maternal Trauma: N/A - Assessment Baseline FHR: 145 Heart Rate - NICHD Category: Category I (Normal) = 0 NST: Reactive Position: N/A Station: N/A - Total Score Total Score (Pre): 0 - Level of Risk Level of Risk: N/A Physician Notification (Pre) - Physician Notified Physician Notified Date: 11/04/17 Physician Notified Time: 14:20 Physician/Practitioner Notifed:: Fitz Spoke With: Fitz Aggarwal Order Received: Yes Disposition - Disposition OB Disposition: Discharge to home, Written follow up instructions reviewed Discharge Date: 11/04/17 Discharge Time: 14:25 I agree with the RN Medical Screening Exam: Yes Risk & Benefit of care provided described in d/c instruction: Yes Diagnosis: DECREASED MOVEMENTS, THIRD TRIMESTER, FETUS 1
== END 2017-11-04 14:25 | disposition home or self-care (01) ==
LOC: FBPOP 13:47
PROVIDERS: ATTEND Obstetrics & Gynecology
DX: O36.8131 Decreased fetal movements, third trimester, fetus 1 (principal); Z3A.30 30 weeks gestation of pregnancy
CPT/HCPCS: 59025; G0463; 99213

== ENCOUNTER 2017-11-16 19:46 | Outpatient (CLI) | payer OTHER ==
[2017-11-16 20:17] LABS: Appearance,Urine Clear (Clear); Bilirubin,Urine Negative (Negative); Blood,Urine Negative (Negative); Color,Urine Light Yellow; Glucose,Urine (UA) Negative (Negative); Ketones,Urine Negative (Negative); Leukocyte Esterase,Urine Negative (Negative); Nitrite,Urine Negative (Negative); PH, Urine 6.5 (5.0-8.0); Protein,Urine Negative (Negative); Specific Gravity,Urine 1.004 (1.001-1.035); Urobilinogen,Urine <2.0 mg/dL (<2.0)
[2017-11-16 20:57] VITALS: BP 124/62; PULSE 85; RESP 16; TEMP 97.2
--- NOTE | 2017-11-20 10:30 | P.MSEPDOC ---
Presenting Problems - Arrival Data Date of Arrival on Unit: 11/16/17 Time of Arrival on Unit: 19:46 Mode of Transport: Ambulatory - Complaint OB-Reason for Admission/Chief Complaint: Other Comment: Pt c/o of increase in swelling in bilateral ankles, pain in right hand r/t swelling. Medical History - Information : 4 Para: 0 Term: 0 : 0 Abortions: Spontaneous or Elective: 0 Number of Living Children: 0 - Gestational Age Gestational Age by KYARA (wks/days): 36 Weeks and 2 Days - History Complications: GDM Review of Systems - Review of Systems Constitutional: No problems Breast: No problems ENT: No problems Cardiovascular: No problems Respiratory: No problems Gastrointestinal: No problems Genitourinary: No problems Musculoskeletal: No problems Neurological: No problems Skin: No problems Vital Signs - Temperature Temperature: 97.2 F Temperature Source: Temporal Artery Scan - Pulse Right Brachial Pulse Rate: 85 Pulse Assessment Method: Automatic Cuff - Respirations Respiratory Rate: 16 Oxygen Delivery Method: Room Air O2 Sat by Pulse Oximetry: 97 - Blood Pressure Right Arm Blood Pressure: 124/62 Blood Pressure Mean: 82 Blood Pressure Source: Automatic Cuff Medical Screen Scoring (Pre) - Cervical Exam Dilation: Exam Deferred Effacement: Exam Deferred Membranes: Intact - Uterine Contractions Frequency: N/A Duration: N/A Intensity: N/A - Maternal Vital Signs Maternal Temperature: N/A Maternal Blood Pressure: N/A Signs of Preeclampsia: N/A Maternal Respirations: N/A - Pain Assessment Pain Location and Character: Head Pain Scale Used: Numeric (1 - 10) Pain Intensity: 3 Pain Description: Dull Pain Frequency: Intermittent Pain Duration Units: Minutes Pain Behavior: None Exhibited - Assessment Baseline FHR: 140 Heart Rate - NICHD Category: Category I (Normal) = 0 NST: Reactive Position: N/A Station: N/A - Total Score Total Score (Pre): 0 - Level of Risk Level of Risk: Low (0-5) Physician Notification (Pre) - Physician Notified Physician Notified Date: 11/16/17 Physician Notified Time: 20:30 Physician/Practitioner Notifed:: Dr. Lieberman Spoke With: Dr. Lieberman New Order Received: Yes - Notification Comment Comment: Dr. Lieberman called and given report on pt in tr. Pt c/o. VS wnl. reactive nst. No contractions noted. U/A results. Orders recieved to d/c pt to home. Disposition - Disposition OB Disposition: Discharge to home Discharge Date: 11/16/17 Discharge Time: 20:45 I agree with the RN Medical Screening Exam: Yes Risk & Benefit of care provided described in d/c instruction: Yes Diagnosis: RELATED CONDITIONS, UNSPECIFIED, THIRD TRIMESTER
== END 2017-11-16 20:45 | disposition home or self-care (01) ==
LOC: FBPOP 19:46
PROVIDERS: ATTEND Obstetrics & Gynecology
DX: O26.93 Pregnancy related conditions, unspecified, third trimester (principal); Z3A.36 36 weeks gestation of pregnancy
CPT/HCPCS: 59025; 81003; G0463; 99213

== ENCOUNTER 2017-12-05 19:26 | Outpatient (CLI) | payer OTHER ==
[2017-12-05 19:47] LABS: Glucose,Whole Blood 151 mg/dL (75-99)
[2017-12-05 20:47] VITALS: BP 128/60; PULSE 93; RESP 16; TEMP 96.9
--- NOTE | 2017-12-09 07:29 | P.MSEPDOC ---
Presenting Problems - Arrival Data Date of Arrival on Unit: 12/05/17 Time of Arrival on Unit: 19:26 Mode of Transport: Wheelchair - Complaint OB-Reason for Admission/Chief Complaint: Decreased Movement, Other Comment: Blood sugar levels have been elevated for 2 days Medical History - Information : 4 Para: 0 Term: 0 : 0 Abortions: Spontaneous or Elective: 0 Number of Living Children: 0 - Gestational Age Gestational Age by KYARA (wks/days): 34 Weeks and 4 Days - History Complications: GDM Review of Systems - Review of Systems Constitutional: No problems Breast: No problems ENT: No problems Cardiovascular: No problems Respiratory: No problems Gastrointestinal: No problems Genitourinary: No problems Musculoskeletal: No problems Neurological: No problems Skin: No problems Vital Signs - Temperature Temperature: 96.9 F Temperature Source: Temporal Artery Scan - Pulse Right Brachial Pulse Rate: 93 Pulse Assessment Method: Automatic Cuff - Respirations Respiratory Rate: 16 Oxygen Delivery Method: Room Air - Blood Pressure Right Arm Blood Pressure: 128/60 Blood Pressure Mean: 82 Blood Pressure Source: Automatic Cuff Medical Screen Scoring (Pre) - Cervical Exam Dilation: Exam Deferred Effacement: Exam Deferred Membranes: Intact - Uterine Contractions Frequency: > 5 minutes apart = 1 Duration: N/A Intensity: N/A - Maternal Vital Signs Maternal Temperature: N/A Maternal Blood Pressure: N/A Signs of Preeclampsia: N/A Maternal Respirations: N/A - Pain Assessment Pain Scale Used: Numeric (1 - 10) Pain Intensity: 0 - Maternal Trauma Maternal Trauma: N/A - Assessment Baseline FHR: 145 Heart Rate - NICHD Category: Category I (Normal) = 0 NST: Reactive Position: N/A Station: N/A - Total Score Total Score (Pre): 1 - Level of Risk Level of Risk: Low (0-5) Physician Notification (Pre) - Physician Notified Physician Notified Date: 12/05/17 Physician Notified Time: 19:47 Physician/Practitioner Notifed:: Dr. Johnson Spoke With: Dr. Johnson New Order Received: Yes - Notification Comment Comment: Dr. Johnson given report on pt blood sugar results. in unit and verified. strip. If nst reactive pt may be discharge to home. Disposition - Disposition OB Disposition: Discharge to home Discharge Date: 12/05/17 Discharge Time: 20:10 I agree with the RN Medical Screening Exam: Yes Physician's MSE Comment: Pt had called with decreased movement. I asked her to come to triage for an NST and to check her blood sugar to make sure her own monitor was working properly. Risk & Benefit of care provided described in d/c instruction: Yes Diagnosis: DECREASED MOVEMENTS, THIRD TRIMESTER, FETUS 1
== END 2017-12-05 20:10 | disposition home or self-care (01) ==
LOC: FBPOP 19:26
PROVIDERS: ATTEND Obstetrics & Gynecology
DX: O36.8131 Decreased fetal movements, third trimester, fetus 1 (principal); Z3A.34 34 weeks gestation of pregnancy
CPT/HCPCS: 59025; G0463; 99213

== ENCOUNTER 2018-02-12 12:17 | Emergency (ER) | payer OTHER ==
[2018-02-12 12:38] VITALS: BP 116/72; PULSE 60; RESP 18; TEMP 97.7
--- NOTE | 2018-02-12 12:42 | ED ---
General Adult HPI - General Chief complaint: ENT Stated complaint: ENT Time Seen by Provider: 02/12/18 12:17 Source: patient, RN notes reviewed Mode of arrival: ambulatory Limitations: no limitations - History of Present Illness Initial comments: This is a 22-year-old female who came in to bring her baby to the hospital and states since she is here she may as well as will be seen as well. Patient complains of occasional cough no sputum production no difficulty breathing shortness of breath. Patient complains of being stuffy over the last few days and has a sore throat that has gotten a little bit worse as of today. Patient denies any chest pain. Patient denies any palpitations. Patient denies any fever chills. Patient states she does have a little dysuria as well. Patient denies any abdominal pain. Patient denies any vomiting or diarrhea. Patient denies any lightheadedness dizziness. Patient denies any rashes lesions or areas of erythema - Related Data Home Medications Medication Instructions Recorded Confirmed INSULIN LISPRO (humaLOG) [humaLOG] 13 units SQ AC-BRKFST 11/04/17 02/12/18 INSULIN LISPRO (humaLOG) [humaLOG] 14 units SQ AC-LUNCH 02/12/18 02/12/18 INSULIN LISPRO (humaLOG) [humaLOG] 16 units SQ AC-SUPPER 02/12/18 02/12/18 Allergies Allergy/AdvReac Type Severity Reaction Status Date / Time latex Allergy Swelling Verified 02/12/18 12:50 Review of Systems ROS Statement: Those systems with pertinent positive or pertinent negative responses have been documented in the HPI. ROS Other: All systems not noted in ROS Statement are negative. Past Medical History Past Medical History: Diabetes Mellitus, Musculoskeletal Disorder Additional Past Medical History / Comment(s): OVARIAN CYSTS, vaginal cysts. SCOLIOSIS; miscarriage x2, RA, ectopic. PID History of Any Multi-Drug Resistant Organisms: None Reported Past Surgical History: No Surgical Hx Reported Additional Past Surgical History / Comment(s): DENTAL PROCEDURE, D and C, right tube removed Past Anesthesia/Blood Transfusion Reactions: No Reported Reaction Past Psychological History: Anxiety, Panic Disorder Smoking Status: Former smoker Past Alcohol Use History: Occasional Past Drug Use History: None Reported - Past Family History Mother Sister(s) Family Medical History: Cancer General Exam - General Exam Comments Initial Comments: GENERAL: Patient is well-developed and well-nourished. Patient is nontoxic and well- hydrated and is in no acute distress. ENT: Neck is soft and supple. No significant lymphadenopathy is noted. Oropharynx is clear. Moist mucous membranes. Neck has full range of motion without eliciting any pain. EYES: The sclera were anicteric and conjunctiva were pink and moist. Extraocular movements were intact and pupils were equal round and reactive to light. Eyelids were unremarkable. PULMONARY: Unlabored respirations. Good breath sounds bilaterally. No audible rales rhonchi or wheezing was noted. CARDIOVASCULAR: There is a regular rate and rhythm without any murmurs gallops or rubs. ABDOMEN: Soft and nontender with normal bowel sounds. No palpable organomegaly was noted. There is no palpable pulsatile mass. SKIN: Skin is clear with no lesions or rashes and otherwise unremarkable. NEUROLOGIC: Patient is alert and oriented x3. Cranial nerves II through XII are grossly intact. Motor and sensory are also intact. Normal speech, volume and content. Symmetrical smile. MUSCULOSKELETAL: Normal extremities with adequate strength and full range of motion. LYMPHATICS: No significant lymphadenopathy is noted PSYCHIATRIC: Normal psychiatric evaluation. Limitations: no limitations Course Vital Signs 02/12/18 12:31 Temperature 97.7 F Pulse Rate 60 Respiratory 18 Rate Blood Pressure 116/72 O2 Sat by Pulse 96 Oximetry Medical Decision Making - Medical Decision Making Strep was negative - Lab Data Lab Results 02/12/18 02/12/18 Range/Units 12:42 12:42 Urine Color Yellow Urine Appearance Cloudy H (Clear) Urine pH 5.5 (5.0-8.0) Ur Specific [place] 1.017 (1.001-1.035) Urine Protein Negative (Negative) Urine Glucose (UA) Negative (Negative) Urine Ketones Negative (Negative) Urine Blood Negative (Negative) Urine Nitrite Negative (Negative) Urine Bilirubin Negative (Negative) Urine Urobilinogen <2.0 (<2.0) mg/dL Ur Leukocyte Esterase Moderate H (Negative) Urine RBC 2 (0-5) /hpf Urine WBC 8 H (0-5) /hpf Ur Squamous Epith Cells 7 H (0-4) /hpf Urine Mucus Rare H (None) /hpf Group A Strep Rapid Negative (Negative) Disposition Clinical Impression: Upper respiratory infection Disposition: HOME SELF-CARE Condition: Good Instructions: Upper Respiratory Infection (ED) Is patient prescribed a controlled substance at d/c from ED?: No Referrals: Elena Hsu MD [Primary Care Provider] - 1-2 days Time of Disposition: 14:04
[2018-02-12 13:42] LABS: Appearance,Urine Cloudy (Clear); Bilirubin,Urine Negative (Negative); Blood,Urine Negative (Negative); Color,Urine Yellow; Glucose,Urine (UA) Negative (Negative); Ketones,Urine Negative (Negative); Leukocyte Esterase,Urine Moderate (Negative); Mucus,Urine Rare /hpf; Nitrite,Urine Negative (Negative); PH, Urine 5.5 (5.0-8.0); Protein,Urine Negative (Negative); RBC,Urine 2 /hpf (0-5); Specific Gravity,Urine 1.017 (1.001-1.035); Squamous Epithelial Cell,Urine 7 /hpf (0-4); Urobilinogen,Urine <2.0 mg/dL (<2.0); WBC,Urine 8 /hpf (0-5)
== END 2018-02-12 14:22 | disposition home or self-care (01) ==
LOC: EC 12:17
DX: J06.9 Acute upper respiratory infection, unspecified (principal); R30.0 Dysuria; E11.9 Type 2 diabetes mellitus without complications; Z87.42 Personal history of other diseases of the female genital tract; Z87.891 Personal history of nicotine dependence; Z79.4 Long term (current) use of insulin; Z91.040 Latex allergy status
CPT/HCPCS: 81001; 87081; 87430; 99283

== ENCOUNTER → 2018-09-30 | Outpatient (CLI) | payer OTHER | END | disposition home or self-care (01) | LOC: LABWHC1 10:13 | PROVIDERS: ATTEND Obstetrics & Gynecology | DX: N92.6 Irregular menstruation, unspecified (principal) | CPT/HCPCS: 36415; 84702 ==

== ENCOUNTER 2018-12-24 12:47 | Emergency (ER) | payer OTHER ==
[2018-12-24 12:53] VITALS: BP 102/64; PULSE 65; RESP 20; TEMP 97.9
--- NOTE | 2018-12-24 13:38 | ED ---
URI HPI - General Chief Complaint: Upper Respiratory Infection Stated Complaint: cough, SOB Time Seen by Provider: 12/24/18 13:04 Source: patient Mode of arrival: ambulatory Limitations: no limitations - History of Present Illness Initial Comments: Patient is a 23-year-old female presenting to the emergency Department with complaints of a cough that has been ongoing for 2-3 weeks. Patient states she also has some pressure on her chest when she is coughing. Patient states she feels increase in fatigue and has not been eating very much. Patient is concerned that she has pneumonia. Patient denies any fever, chills, chest pain, shortness of breath. She has no pertinent past medical history. Patient has no other complaints at this time. Upon arrival to the ER, vital signs are stable. - Related Data Home Medications Medication Instructions Recorded Confirmed INSULIN LISPRO (humaLOG) [humaLOG] 13 units SQ AC-BRKFST 11/04/17 02/12/18 INSULIN LISPRO (humaLOG) [humaLOG] 14 units SQ AC-LUNCH 02/12/18 02/12/18 INSULIN LISPRO (humaLOG) [humaLOG] 16 units SQ AC-SUPPER 02/12/18 02/12/18 Previous Rx's Medication Instructions Recorded Azithromycin [Zithromax Z-pack] 0 mg PO DIRECTED #1 pack 12/24/18 predniSONE 20 mg PO BID 5 Days #10 tab 12/24/18 Allergies Allergy/AdvReac Type Severity Reaction Status Date / Time latex Allergy Swelling Verified 12/24/18 12:53 Review of Systems ROS Statement: Those systems with pertinent positive or pertinent negative responses have been documented in the HPI. ROS Other: All systems not noted in ROS Statement are negative. Past Medical History Past Medical History: Diabetes Mellitus, Musculoskeletal Disorder Additional Past Medical History / Comment(s): OVARIAN CYSTS, vaginal cysts. SCOLIOSIS; miscarriage x2, RA, ectopic. PID History of Any Multi-Drug Resistant Organisms: None Reported Past Surgical History: No Surgical Hx Reported Additional Past Surgical History / Comment(s): DENTAL PROCEDURE, D and C, right tube removed Past Anesthesia/Blood Transfusion Reactions: No Reported Reaction Past Psychological History: Anxiety, Panic Disorder Smoking Status: Former smoker Past Alcohol Use History: Occasional Past Drug Use History: None Reported - Past Family History Mother Sister(s) Family Medical History: Cancer General Exam - General Exam Comments Initial Comments: GENERAL: Well-appearing, well-nourished and in no acute distress. HEAD: Atraumatic, normocephalic. EYES: Pupils equal round and reactive to light, extraocular movements intact, sclera anicteric, conjunctiva are normal. ENT: TMs normal, nares patent, oropharynx clear without exudates. Moist mucous membranes. NECK: Normal range of motion, supple without lymphadenopathy or JVD. LUNGS: Breath sounds clear to auscultation bilaterally and equal. No wheezes rales or rhonchi. HEART: Regular rate and rhythm without murmurs, rubs or gallops. ABDOMEN: Soft, nontender, normoactive bowel sounds. No guarding, no rebound. No masses appreciated. EXTREMITIES: Normal range of motion, no pitting or edema. No clubbing or cyanosis. NEUROLOGICAL: Cranial nerves II through XII grossly intact. Normal speech, normal gait. PSYCH: Normal mood, normal affect. SKIN: Warm, Dry, normal turgor, no rashes or lesions noted. Limitations: no limitations Course Vital Signs 12/24/18 12:49 Temperature 97.9 F Pulse Rate 65 Respiratory 20 Rate Blood Pressure 102/64 O2 Sat by Pulse 100 Oximetry Medical Decision Making - Medical Decision Making Patient is a 23-year-old female presenting with a cough 2-3 weeks. Vital signs are stable, afebrile. Exam is unremarkable. Chest x-ray shows no acute processes. Discussed with patient this is also likely an upper respiratory infection but given the length of his symptoms patient will be started on Z-Kevin as well as steroids for her symptoms. Patient is in agreement with this plan of care. She is stable for discharge at this time. Return parameters were discussed with the patient she verbalized understanding. Case discussed with Dr. Cedeno. Disposition Clinical Impression: Acute upper respiratory infection Disposition: HOME SELF-CARE Condition: Stable Instructions (If sedation given, give patient instructions): Upper Respiratory Infection (ED) Additional Instructions: Please return to the Emergency Department if symptoms worsen or any other concerns. Take antibiotics and steroids as prescribed. Follow-up with PCP as symptoms persist after one week. Prescriptions: predniSONE 20 mg PO BID 5 Days #10 tab Azithromycin [Zithromax Z-pack] 0 mg PO DIRECTED #1 pack Is patient prescribed a controlled substance at d/c from ED?: No Referrals: None,Stated [Primary Care Provider] - 1-2 days
--- NOTE | 2018-12-24 14:02 | XR ---
EXAMINATION TYPE: XR chest 2V DATE OF EXAM ORDERED: 12/24/2018 HISTORY: cough x 2 wks. REFERENCE: None. FINDINGS: The lungs are clear. Pleural spaces are clear. Heart size is normal. IMPRESSION: NORMAL CHEST.
== END 2018-12-24 14:26 | disposition home or self-care (01) ==
LOC: EC 12:47
DX: J06.9 Acute upper respiratory infection, unspecified (principal); E11.9 Type 2 diabetes mellitus without complications; Z87.891 Personal history of nicotine dependence; Z79.4 Long term (current) use of insulin; Z91.040 Latex allergy status
CPT/HCPCS: 71046; 99284

== ENCOUNTER 2019-02-28 22:11 | Emergency (ER) | payer OTHER ==
[2019-02-28] MEDS ORDERED: SODIUM CHLORIDE 0.9% 500 ML 500 ML IV ONE (22:40)
[2019-02-28 23:12] LABS: Basophils # (A) 0.2 k/uL (0-0.2); Basophils % (A) 2 %; Eosinophils # (A) 0.2 k/uL (0-0.7); Eosinophils % (A) 3 %; HGB 15.3 gm/dL (11.4-16.0); Lymphocytes # (A) 2.7 k/uL (1.0-4.8); Lymphocytes % (A) 35 %; MCHC 33.2 g/dL (31.0-37.0); MCV 90.4 fL (80.0-100.0); Mean Platelet Volume 8.3; Monocytes # (A) 0.5 k/uL (0-1.0); Monocytes % (A) 6 %; Neutrophils % (A) 52 %; Platelet Count 227 k/uL (150-450); RBC 5.09 m/uL (3.80-5.40); RDW 11.8 % (11.5-15.5); WBC 7.8 k/uL (3.8-10.6)
[2019-02-28 23:31] LABS: ALT 17 U/L (4-34); AST 23 U/L (14-36); African American GFR (CKD) >90 (>60 ml/min/1.73 sqM); Albumin 5.1 g/dL (3.5-5.0); Alkaline Phosphatase 71 U/L (38-126); Anion Gap 10 mmol/L; Blood Urea Nitrogen 11 mg/dL (7-17); Calcium 9.7 mg/dL (8.4-10.2); Carbon Dioxide 26 mmol/L (22-30); Chloride 105 mmol/L (98-107); Glucose 87 mg/dL (74-99); Non-African American GFR(CKD) >90 (>60 ml/min/1.73 sqM); Sodium 141 mmol/L (137-145); Total Bilirubin 0.4 mg/dL (0.2-1.3); Total Protein 8.3 g/dL (6.3-8.2)
--- NOTE | 2019-02-28 23:39 | US ---
EXAMINATION TYPE: US transvaginal DATE OF EXAM: 02/28/2019 COMPARISON: US CLINICAL HISTORY: vaginal bleeding, pain. Pain and vaginal bleeding x 6 days. Hx ovarian cysts, PID. Rt tube removed in 2014 due to ectopic . Hx 2 miscarriages. Endometriosis. . TECHNIQUE: Transvaginal. Date of LMP: 02/12/2019 EXAM MEASUREMENTS: Uterus: 8.7 x 4.9 x 3.4 cm Endometrial Stripe: Limited. Measured at 0.61 cm Right Ovary: 3.5 x 2.1 x 2.2 cm Left Ovary: 3.1 x 2.4 x 1.9 cm 1. Uterus: Anteverted Appears slightly heterogeneous. 2. Endometrium: Indistinct hyperechoic area seen measurin.5 x 0.5 x 0.1 cm. Limited endometrial measurement. 3. Right Ovary: Multiple anechoic areas seen, largest measures: 0.8 x 1.0 x 0.8 cm. 4. Left Ovary: Multiple anechoic areas seen, largest measures: 0.7 x 0.7 x 0.5 cm. Spectral, color and waveform doppler imaging shows arterial and venous flow within the ovaries. 5. Bilateral Adnexa: Appear to be wnl 6. Posterior cul-de-sac: Fluid is seen IMPRESSION: No adnexal mass or free fluid. Small follicular ovarian cysts. No evidence of ovarian torsion. No mimi rine abnormality seen.
[2019-02-28 23:57] LABS: Appearance,Urine Cloudy (Clear); Bacteria,Urine Rare /hpf; Bilirubin,Urine Negative (Negative); Blood,Urine Small (Negative); Color,Urine Yellow; Glucose,Urine (UA) Negative (Negative); Hyaline Casts,Urine 4 /lpf (0-2); Ketones,Urine Negative (Negative); Leukocyte Esterase,Urine Large (Negative); Mucus,Urine Rare /hpf; Nitrite,Urine Negative (Negative); PH, Urine 5.5 (5.0-8.0); Protein,Urine Negative (Negative); RBC,Urine 2 /hpf (0-5); Specific Gravity,Urine 1.024 (1.001-1.035); Squamous Epithelial Cell,Urine 12 /hpf (0-4); Urobilinogen,Urine <2.0 mg/dL (<2.0); WBC,Urine 30 /hpf (0-5)
[2019-03-01] MEDS ORDERED: cefTRIAXone 250 MG VIAL IM STA (00:24)
[2019-03-01] MEDS ORDERED: DOXYCYCLINE 100 MG CAP PO STA (00:24)
--- NOTE | 2019-03-01 00:32 | ED ---
General Adult HPI - General Chief complaint: Vaginal Bleeding Stated complaint: vag bleeding/abd pain Time Seen by Provider: 02/28/19 22:32 Source: patient, RN notes reviewed, old records reviewed Mode of arrival: ambulatory Limitations: no limitations - History of Present Illness Initial comments: 23-year-old female patient past medical history of pelvic inflammatory disease, ectopic resulting in salpingotomy presents ED for chief complaint of vag inal bleeding for the last 6 days. Patient has a mild amount of suprapubic discomfort. Patient reports that does have endometriosis at baseline in this discomfort is around her baseline for her. She reports that she is mostly concerned about the vaginal bleeding for the last 4 days. Reports that has now been saturating a pad per day. Denies poor that she contacted her [employer] she does have an appointment scheduled in March. Reports that she does have a new sexual partner and does engage in the presents with 6. Denies any concern for STI at this time. Denies any other complaints at this time. Systemic: Pt denies fatigue, fever/chills, rash. Pt denies weakness, night sweats, weight loss. Neuro: Pt denies headache, visual disturbances, syncope or pre-syncope. HEENT: Pt denies ocular discharge or irritation, otalgia, rhinorrhea, pharyngitis or notable lymphadenopathy. Cardiopulmonary: Pt denies chest pain, SOB, heart palpitations, dyspnea on exertion. Abdominal/GI: Pt denies n/v/d. : Pt denies dysuria, burning w/ urination, frequency/urgency. Denies new onset urinary or bowel incontinence. MSK: Pt denies myalgia, loss of strength or function in extremities. Neuro: Pt denies new onset weakness, paresthesias. - Related Data Home Medications Medication Instructions Recorded Confirmed INSULIN LISPRO (humaLOG) [humaLOG] 13 units SQ AC-BRKFST 11/04/17 02/12/18 INSULIN LISPRO (humaLOG) [humaLOG] 14 units SQ AC-LUNCH 02/12/18 02/12/18 INSULIN LISPRO (humaLOG) [humaLOG] 16 units SQ AC-SUPPER 02/12/18 02/12/18 Previous Rx's Medication Instructions Recorded Azithromycin [Zithromax Z-pack] 0 mg PO DIRECTED #1 pack 12/24/18 predniSONE [Deltasone] 20 mg PO BID 5 Days #10 tab 11/17/19 Doxycycline [Vibramycin] 100 mg PO BID 14 Days #28 cap 03/01/19 Allergies Allergy/AdvReac Type Severity Reaction Status Date / Time latex Allergy Swelling Verified 02/28/19 22:26 Review of Systems ROS Statement: Those systems with pertinent positive or pertinent negative responses have been documented in the HPI. ROS Other: All systems not noted in ROS Statement are negative. Past Medical History Past Medical History: Diabetes Mellitus, Musculoskeletal Disorder Additional Past Medical History / Comment(s): OVARIAN CYSTS, vaginal cysts. SCOLIOSIS; miscarriage x2, RA, ectopic. PID History of Any Multi-Drug Resistant Organisms: None Reported Past Surgical History: No Surgical Hx Reported Additional Past Surgical History / Comment(s): DENTAL PROCEDURE, D and C, right tube removed Past Anesthesia/Blood Transfusion Reactions: No Reported Reaction Past Psychological History: Anxiety, Panic Disorder Smoking Status: Former smoker Past Alcohol Use History: Occasional Past Drug Use History: None Reported - Past Family History Mother Sister(s) Family Medical History: Cancer General Exam - General Exam Comments Initial Comments: Constitutional: NAD, AOX3, Pt has pleasant affect. HEENT: NC/AT, trachea midline, neck supple, no lymphadenopathy. Posterior pharynx non erythematous, without exudates. External ears appear normal, without discharge. Mucous membranes moist. Eyes PERRLA, EOM intact. There is no scleral icterus. No pallor noted. Cardiopulmonary: RRR, no murmurs, rubs or gallops, no JVD noted. Lungs CTAB in anterior and posterior mcneil. No peripheral edema. Abdominal exam: Abdomen soft and non-distended. Abdomen non-tender to palpation in all 4 quadrants. Bowel sounds active in LLQ. No hepatosplenomegaly. No ecchymosis Neuro: CN II-XII grossly intact. No nuchal rigidity. No raccon eyes, no goldman sign, no hemotympanum. No cervical spinal tenderness. MSK: No posterior calf tenderness bilaterally, homans sign negative bilaterally. Posterior tibialis and radial pulse +2 bilaterally. Sensation intact in upper and lower extremities. Full active ROM in upper and lower extremities, 5/5 stregnth. Pelvic: Small amount of discharge noted from cervix, very mild amount of cervical motion tenderness present. No other abnormal findings, no ulcerations or lesions noted. Chaperogned by KATLYN Ruiz. Limitations: no limitations Course Vital Signs 02/28/19 22:24 Temperature 98.0 F Pulse Rate 73 Respiratory 20 Rate Blood Pressure 104/70 O2 Sat by Pulse 99 Oximetry Medical Decision Making - Medical Decision Making 23-year-old female patient past medical history of pelvic inflammatory disease, ectopic resulting in salpingotomy presents ED for chief complaint of vaginal bleeding for the last 6 days. Patient has a mild amount of suprapubic discomfort. Patient reports that does have endometriosis at baseline in this discomfort is around her baseline for her. She reports that she is mostly concerned about the vaginal bleeding for the last 4 days. Reports that has now been saturating a pad per day. Denies poor that she contacted her [employer] she does have an appointment scheduled in March. Reports that she does have a new sexual partner and does engage in the presents with 6. Denies any concern for STI at this time. Denies any other complaints at this time. Pt VSS, af ebrile. Physical exam displayed: Small amount of discharge noted from cervix, very mild amount of cervical motion tenderness present. No other abnormal findings, no ulcerations or lesions noted. Chaperogned by KATLYN Ruiz. Abdomen is soft, nontender. Laboratory investigations revealed negative hCG, urine with large leukocyte esterase, 30 white blood cells, 12 squamous epithelial cells. Ultrasound transvaginally displayed no adnexal masses or free fluid. Small follicular ovarian cyst. No evidence of torsion. No urinary abnormality seen. Shared decision making, patient will be treated for pelvic inflammatory disease. Administered Rocephin and doxycycline in ED. Patient will close outpatient follow-up with [employer] tomorrow. Return to ER if condition worsens. Case discussed in depth with Dr. Arteaga. - Lab Data Result diagrams: 02/28/19 22:51 02/28/19 22:51 Lab Results 02/28/19 02/28/19 02/28/19 Range/Units 22:50 22:50 22:51 WBC 7.8 (3.8-10.6) k/uL RBC 5.09 (3.80-5.40) m/uL Hgb 15.3 (11.4-16.0) gm/dL Hct 46.0 (34.0-46.0) % MCV 90.4 (80.0-100.0) fL MCH 30.0 (25.0-35.0) pg MCHC 33.2 (31.0-37.0) g/dL RDW 11.8 (11.5-15.5) % Plt Count 227 (150-450) k/uL Neutrophils % 52 % Lymphocytes % 35 % Monocytes % 6 % Eosinophils % 3 % Basophils % 2 % Neutrophils # 4.0 (1.3-7.7) k/uL Lymphocytes # 2.7 (1.0-4.8) k/uL Monocytes # 0.5 (0-1.0) k/uL Eosinophils # 0.2 (0-0.7) k/uL Basophils # 0.2 (0-0.2) k/uL Sodium (137-145) mmol/L Potassium (3.5-5.1) mmol/L Chloride (98-107) mmol/L Carbon Dioxide (22-30) mmol/L Anion Gap mmol/L BUN (7-17) mg/dL Creatinine (0.52-1.04) mg/dL Est GFR (CKD-EPI)AfAm (>60 ml/min/1.73 sqM) Est GFR (CKD-EPI)NonAf (>60 ml/min/1.73 sqM) Glucose (74-99) mg/dL Calcium (8.4-10.2) mg/dL Total Bilirubin (0.2-1.3) mg/dL AST (14-36) U/L ALT (4-34) U/L Alkaline Phosphatase (38-126) U/L Total Protein (6.3-8.2) g/dL Albumin (3.5-5.0) g/dL Urine Color Yellow Urine Appearance Cloudy H (Clear) Urine pH 5.5 (5.0-8.0) Ur Specific [place] 1.024 (1.001-1.035) Urine Protein Negative (Negative) Urine Glucose (UA) Negative (Negative) Urine Ketones Negative (Negative) Urine Blood Small H (Negative) Urine Nitrite Negative (Negative) Urine Bilirubin Negative (Negative) Urine Urobilinogen <2.0 (<2.0) mg/dL Ur Leukocyte Esterase Large H (Negative) Urine RBC 2 (0-5) /hpf Urine WBC 30 H (0-5) /hpf Ur Squamous Epith Cells 12 H (0-4) /hpf Urine Bacteria Rare H (None) /hpf Hyaline Casts 4 H (0-2) /lpf Urine Mucus Rare H (None) /hpf Urine HCG, Qual Not Detected (Not Detectd) 02/28/19 Range/Units 22:51 WBC (3.8-10.6) k/uL RBC (3.80-5.40) m/uL Hgb (11.4-16.0) gm/dL Hct (34.0-46.0) % MCV (80.0-100.0) fL MCH (25.0-35.0) pg MCHC (31.0-37.0) g/dL RDW (11.5-15.5) % Plt Count (150-450) k/uL Neutrophils % % Lymphocytes % % Monocytes % % Eosinophils % % Basophils % % Neutrophils # (1.3-7.7) k/uL Lymphocytes # (1.0-4.8) k/uL Monocytes # (0-1.0) k/uL Eosinophils # (0-0.7) k/uL Basophils # (0-0.2) k/uL Sodium 141 (137-145) mmol/L Potassium 4.0 (3.5-5.1) mmol/L Chloride 105 (98-107) mmol/L Carbon Dioxide 26 (22-30) mmol/L Anion Gap 10 mmol/L BUN 11 (7-17) mg/dL Creatinine 0.82 (0.52-1.04) mg/dL Est GFR (CKD-EPI)AfAm >90 (>60 ml/min/1.73 sqM) Est GFR (CKD-EPI)NonAf >90 (>60 ml/min/1.73 sqM) Glucose 87 (74-99) mg/dL Calcium 9.7 (8.4-10.2) mg/dL Total Bilirubin 0.4 (0.2-1.3) mg/dL AST 23 (14-36) U/L ALT 17 (4-34) U/L Alkaline Phosphatase 71 (38-126) U/L Total Protein 8.3 H (6.3-8.2) g/dL Albumin 5.1 H (3.5-5.0) g/dL Urine Color Urine Appearance (Clear) Urine pH (5.0-8.0) Ur Specific [place] (1.001-1.035) Urine Protein (Negative) Urine Glucose (UA) (Negative) Urine Ketones (Negative) Urine Blood (Negative) Urine Nitrite (Negative) Urine Bilirubin (Negative) Urine Urobilinogen (<2.0) mg/dL Ur Leukocyte Esterase (Negative) Urine RBC (0-5) /hpf Urine WBC (0-5) /hpf Ur Squamous Epith Cells (0-4) /hpf Urine Bacteria (None) /hpf Hyaline Casts (0-2) /lpf Urine Mucus (None) /hpf Urine HCG, Qual (Not Detectd) Disposition Clinical Impression: PID (pelvic inflammatory disease), Vaginal bleeding Disposition: HOME SELF-CARE Condition: Stable Instructions (If sedation given, give patient instructions): Pelvic Inflammatory Disease (ED), Dysfunctional Uterine Bleeding (ED) Additional Instructions: Take antibiotics as directed. Follow-up with [employer] and primary care provider tomorrow. Return to ER if condition worsens. Prescriptions: Doxycycline [Vibramycin] 100 mg PO BID 14 Days #28 cap Is patient prescribed a controlled substance at d/c from ED?: No Referrals: None,Stated [Primary Care Provider] - 1-2 days Miguelina Johnson DO [Doctor of Osteopathic Medicine] - 1-2 days
[2019-03-01 00:46] VITALS: BP 117/68; PULSE 78; RESP 16; TEMP 97.3
--- NOTE | 2019-03-01 00:48 | ED ---
Medical Decision Making - Medical Decision Making Risks of doxycycline discussed with patient, encouraged safe sex practices. - Lab Data Result diagrams: 02/28/19 22:51 02/28/19 22:51 Lab Results 02/28/19 02/28/19 02/28/19 Range/Units 22:50 22:50 22:51 WBC 7.8 (3.8-10.6) k/uL RBC 5.09 (3.80-5.40) m/uL Hgb 15.3 (11.4-16.0) gm/dL Hct 46.0 (34.0-46.0) % MCV 90.4 (80.0-100.0) fL MCH 30.0 (25.0-35.0) pg MCHC 33.2 (31.0-37.0) g/dL RDW 11.8 (11.5-15.5) % Plt Count 227 (150-450) k/uL Neutrophils % 52 % Lymphocytes % 35 % Monocytes % 6 % Eosinophils % 3 % Basophils % 2 % Neutrophils # 4.0 (1.3-7.7) k/uL Lymphocytes # 2.7 (1.0-4.8) k/uL Monocytes # 0.5 (0-1.0) k/uL Eosinophils # 0.2 (0-0.7) k/uL Basophils # 0.2 (0-0.2) k/uL Sodium (137-145) mmol/L Potassium (3.5-5.1) mmol/L Chloride (98-107) mmol/L Carbon Dioxide (22-30) mmol/L Anion Gap mmol/L BUN (7-17) mg/dL Creatinine (0.52-1.04) mg/dL Est GFR (CKD-EPI)AfAm (>60 ml/min/1.73 sqM) Est GFR (CKD-EPI)NonAf (>60 ml/min/1.73 sqM) Glucose (74-99) mg/dL Calcium (8.4-10.2) mg/dL Total Bilirubin (0.2-1.3) mg/dL AST (14-36) U/L ALT (4-34) U/L Alkaline Phosphatase (38-126) U/L Total Protein (6.3-8.2) g/dL Albumin (3.5-5.0) g/dL Urine Color Yellow Urine Appearance Cloudy H (Clear) Urine pH 5.5 (5.0-8.0) Ur Specific [place] 1.024 (1.001-1.035) Urine Protein Negative (Negative) Urine Glucose (UA) Negative (Negative) Urine Ketones Negative (Negative) Urine Blood Small H (Negative) Urine Nitrite Negative (Negative) Urine Bilirubin Negative (Negative) Urine Urobilinogen <2.0 (<2.0) mg/dL Ur Leukocyte Esterase Large H (Negative) Urine RBC 2 (0-5) /hpf Urine WBC 30 H (0-5) /hpf Ur Squamous Epith Cells 12 H (0-4) /hpf Urine Bacteria Rare H (None) /hpf Hyaline Casts 4 H (0-2) /lpf Urine Mucus Rare H (None) /hpf Urine HCG, Qual Not Detected (Not Detectd) 02/28/19 Range/Units 22:51 WBC (3.8-10.6) k/uL RBC (3.80-5.40) m/uL Hgb (11.4-16.0) gm/dL Hct (34.0-46.0) % MCV (80.0-100.0) fL MCH (25.0-35.0) pg MCHC (31.0-37.0) g/dL RDW (11.5-15.5) % Plt Count (150-450) k/uL Neutrophils % % Lymphocytes % % Monocytes % % Eosinophils % % Basophils % % Neutrophils # (1.3-7.7) k/uL Lymphocytes # (1.0-4.8) k/uL Monocytes # (0-1.0) k/uL Eosinophils # (0-0.7) k/uL Basophils # (0-0.2) k/uL Sodium 141 (137-145) mmol/L Potassium 4.0 (3.5-5.1) mmol/L Chloride 105 (98-107) mmol/L Carbon Dioxide 26 (22-30) mmol/L Anion Gap 10 mmol/L BUN 11 (7-17) mg/dL Creatinine 0.82 (0.52-1.04) mg/dL Est GFR (CKD-EPI)AfAm >90 (>60 ml/min/1.73 sqM) Est GFR (CKD-EPI)NonAf >90 (>60 ml/min/1.73 sqM) Glucose 87 (74-99) mg/dL Calcium 9.7 (8.4-10.2) mg/dL Total Bilirubin 0.4 (0.2-1.3) mg/dL AST 23 (14-36) U/L ALT 17 (4-34) U/L Alkaline Phosphatase 71 (38-126) U/L Total Protein 8.3 H (6.3-8.2) g/dL Albumin 5.1 H (3.5-5.0) g/dL Urine Color Urine Appearance (Clear) Urine pH (5.0-8.0) Ur Specific [place] (1.001-1.035) Urine Protein (Negative) Urine Glucose (UA) (Negative) Urine Ketones (Negative) Urine Blood (Negative) Urine Nitrite (Negative) Urine Bilirubin (Negative) Urine Urobilinogen (<2.0) mg/dL Ur Leukocyte Esterase (Negative) Urine RBC (0-5) /hpf Urine WBC (0-5) /hpf Ur Squamous Epith Cells (0-4) /hpf Urine Bacteria (None) /hpf Hyaline Casts (0-2) /lpf Urine Mucus (None) /hpf Urine HCG, Qual (Not Detectd) Disposition Clinical Impression: PID (pelvic inflammatory disease), Vaginal bleeding Disposition: HOME SELF-CARE Condition: Stable Instructions (If sedation given, give patient instructions): Pelvic Inflam matory Disease (ED), Dysfunctional Uterine Bleeding (ED) Additional Instructions: Take antibiotics as directed. Follow-up with [employer] and primary care provider tomorrow. Return to ER if condition worsens. Prescriptions: Doxycycline [Vibramycin] 100 mg PO BID 14 Days #28 cap Is patient prescribed a controlled substance at d/c from ED?: No Referrals: Miguelina Johnson, [Doctor of Osteopathic Medicine] - 1-2 days None,Stated [Primary Care Provider] - 1-2 days
[2019-03-02 16:37] LABS: N. gonorrhoeae,PCR Negative (Neg,Equiv); Neisseria Source Cervix
[2019-03-02 16:49] LABS: C. trachomatis,PCR Negative (Neg,Equiv); Chlamydia trachomatis Source Cervix
== END 2019-03-01 00:46 | disposition home or self-care (01) ==
LOC: EC 22:11
DX: N73.9 Female pelvic inflammatory disease, unspecified (principal); N93.9 Abnormal uterine and vaginal bleeding, unspecified; N80.9 Endometriosis, unspecified; N83.209 Unspecified ovarian cyst, unspecified side; E11.9 Type 2 diabetes mellitus without complications; Z79.4 Long term (current) use of insulin; Z91.040 Latex allergy status; Z87.891 Personal history of nicotine dependence
CPT/HCPCS: 36415; 80053; 85025; 81001; 81025; 87808; 87491; 87591; 87070; 87086; 93975; 76830; 99284; 96360; 96372; J0696

== ENCOUNTER → 2019-10-18 | Outpatient (CLI) | payer OTHER ==
[2019-10-18 18:50] LABS: African American GFR (CKD) 103.7 (60.0-200.0); Albumin 4.5 g/dL (3.80-4.90); Albumin/Globulin Ratio 1.96 (1.60-3.17); Anion Gap 6.2 mmol/L (4.00-12.00); BUN/Creat Ratio 17.78 Ratio (12.00-20.00); Calcium 9.8 mg/dL (8.7-10.3); Carbon Dioxide 26.8 mmol/L (21.6-31.8); Globulin 2.3 g/dL (1.6-3.3); Non-African American GFR(CKD) 89.5 (60.0-200.0); Potassium 4.5 mmol/L (3.5-5.5); Total Bilirubin 0.6 mg/dL (0.2-1.2); Total Protein 6.8 g/dL (6.2-8.2)
[2019-10-18 18:57] LABS: T4, Free (Free Thyroxine) 1.3 ng/dL (0.80-1.80)
[2019-10-18 21:00] LABS: Hemoglobin A1C 5.3 % (4.0-6.0)
== END | disposition home or self-care (01) ==
LOC: LABWHC1 12:36
PROVIDERS: ATTEND Internal Medicine
DX: E16.2 Hypoglycemia, unspecified (principal); R60.0 Localized edema; R53.83 Other fatigue
CPT/HCPCS: 36415; 80053; 83036; 84439; 84443; 84481

== ENCOUNTER 2020-03-16 13:22 | Emergency (ER) | payer OTHER ==
[2020-03-16 13:37] VITALS: BP 109/69; PULSE 66; RESP 18; TEMP 99.1
[2020-03-16] MEDS ORDERED: KETOROLAC 15 MG/ML 1 ML VIAL IVP STA (13:51)
[2020-03-16] MEDS ORDERED: ONDANSETRON 4 MG/2 ML VIAL IVP STA (13:51)
[2020-03-16] MEDS ORDERED: SODIUM CHLORIDE 0.9% 1,000 ML IV STA (13:51)
--- NOTE | 2020-03-16 14:05 | ED ---
Abdominal Pain HPI - General Chief Complaint: Abdominal Pain Stated Complaint: Abd Pain Time Seen by Provider: 03/16/20 13:40 Source: patient Mode of arrival: ambulatory Limitations: no limitations - History of Present Illness Initial Comments: Patient is a 24-year-old female presenting to the emergency Department with complaints of an acute onset left lower quadrant pain that woke her up from sleep at approximately 3 AM today. Patient states is located lower in her left lower quadrant, with some radiation to the left side. Patient admits to history of right-sided ectopic as well as 2 previous D&Cs. Her right fallopian tube was removed. She also states history of ovarian cysts but states she can usually tell when the pain is caused from that as she usually has vaginal discharge or bleeding. She denies having any vaginal discharge or vaginal bleeding, no dysuria, no hematuria. She denies history of kidney stones. She denies any other abdominal surgeries. She does admit to nausea and one episode of vomiting this morning secondary to the pain. She did take ibuprofen which did help. Right now she rates her pain as 7/10, with no radiation at this time. They fever or chills, no chest pain or shortness of breath. She has no further complaints at this time. Upon arrival to the ER, her vital signs are stable. - Related Data Home Medications Medication Instructions Recorded Confirmed INSULIN LISPRO (humaLOG) [humaLOG] 13 units SQ AC-BRKFST 11/04/17 02/12/18 INSULIN LISPRO (humaLOG) [humaLOG] 14 units SQ AC-LUNCH 02/12/18 02/12/18 INSULIN LISPRO (humaLOG) [humaLOG] 16 units SQ AC-SUPPER 02/12/18 02/12/18 Previous Rx's Medication Instructions Recorded Azithromycin [Zithromax Z-pack (6 0 mg PO DIRECTED #1 pack 12/24/18 tabs)] predniSONE [Deltasone] 20 mg PO BID 5 Days #10 tab 12/24/18 Doxycycline [Vibramycin] 100 mg PO BID 14 Days #28 cap 03/01/19 Ketorolac [Toradol] 10 mg PO Q8HR #10 tab 03/16/20 Allergies Allergy/AdvReac Type Severity Reaction Status Date / Time latex Allergy Swelling Verified 03/16/20 13:37 Review of Systems ROS Statement: Those systems with pertinent positive or pertinent negative responses have been documented in the HPI. ROS Other: All systems not noted in ROS Statement are negative. Past Medical History Past Medical History: Diabetes Mellitus, Musculoskeletal Disorder Additional Past Medical History / Comment(s): OVARIAN CYSTS, vaginal cysts. SCOLIOSIS; miscarriage x2, RA, ectopic. PID History of Any Multi-Drug Resistant Organisms: None Reported Past Surgical History: No Surgical Hx Reported Additional Past Surgical History / Comment(s): DENTAL PROCEDURE, D and C, right tube removed Past Anesthesia/Blood Transfusion Reactions: No Reported Reaction Past Psychological History: Anxiety, Panic Disorder Smoking Status: Current every day smoker Past Alcohol Use History: Occasional Past Drug Use History: None Reported - Past Family History Mother Sister(s) Family Medical History: Cancer General Exam - General Exam Comments Initial Comments: GENERAL: Patient is well-developed and well-nourished. Patient is nontoxic and in no acute distress. HEAD: Atraumatic, normocephalic. EYES: Pupils equal round and reactive to light, extraocular movements intact, sclera anicteric, conjunctiva are normal. Eyelids were unremarkable. ENT: TMs normal, nares patent, oropharynx clear without exudates. Moist mucous membranes. NECK: Normal range of motion, supple without lymphadenopathy or JVD. LUNGS: Unlabored respirations. Breath sounds clear to auscultation bilaterally and equal. No wheezes rales or rhonchi. HEART: Regular rate and rhythm without murmurs, rubs or gallops. ABDOMEN: Left lower quadrant pain with palpation. Soft, normoactive bowel sounds. No guarding, no rebound. No masses appreciated. : Deferred MUSCULOSKELETAL: Normal extremities with adequate strength and normal range of motion, no pitting or edema. No clubbing or cyanosis. NEUROLOGICAL: Patient is alert and oriented x 3. Motor and sensory are also intact. Cranial nerves II through XII grossly intact. Symmetrical smile. Normal speech, normal gait. PSYCH: Normal mood, normal affect. SKIN: Warm, Dry, normal turgor, no rashes or lesions noted. Limitations: no limitations Course Vital Signs 03/16/20 13:31 Temperature 99.1 F Pulse Rate 66 Respiratory 18 Rate Blood Pressure 109/69 O2 Sat by Pulse 100 Oximetry Medical Decision Making - Medical Decision Making Patient is a 24-year-old female here for left lower quadrant pain that woke her up suddenly at 3 AM this morning. She does have some nausea, one episode of vomiting. She did take ibuprofen which did help. She does have history of right-sided ectopic and 2 D&Cs. No other abdominal surgeries. Her vital signs stable upon arrival. Labs show a normal white count, normal hemoglobin, lactic acid is also normal. Urine shows a large amount of blood, rare bacteria. She denies any dysuria. Her urine hCG is not detected. Ultrasound revealed no evidence of ovarian torsion, no other acute abnormalities. I did do a CT without contrast to check for a stone, there is no evidence of hydronephrosis, no renal calculus seen. No other acute findings other than some mild free fluid in the pelvis. Patient was given fluids, Toradol and has been resting comfortably. I discussed these findings with her. With the hematuria and the sudden onset of pain, this is most likely a small kidney stone that has recently passed or will pass soon. I recommended patient to continue to drink lots of fluids. I will give her some Zofran for any additional nausea as well as a few Toradol tablets for any pain. She can also follow up with her regular doctor.Patient is stable for discharge. Patient is in agreement with this plan of care. Return parameters were discussed with the patient and they verbalized understanding. Case discussed with Dr. Servin. - Lab Data Result diagrams: 03/16/20 13:57 03/16/20 13:57 Lab Results 03/16/20 03/16/20 03/16/20 Range/Units 13:57 13:57 13:57 WBC 9.4 (3.8-10.6) k/uL RBC 4.91 (3.80-5.40) m/uL Hgb 15.0 (11.4-16.0) gm/dL Hct 44.6 (34.0-46.0) % MCV 90.9 (80.0-100.0) fL MCH 30.7 (25.0-35.0) pg MCHC 33.7 (31.0-37.0) g/dL RDW 11.5 (11.5-15.5) % Plt Count 210 (150-450) k/uL MPV 8.0 Neutrophils % 61 % Lymphocytes % 30 % Monocytes % 6 % Eosinophils % 2 % Basophils % 1 % Neutrophils # 5.7 (1.3-7.7) k/uL Lymphocytes # 2.8 (1.0-4.8) k/uL Monocytes # 0.5 (0-1.0) k/uL Eosinophils # 0.2 (0-0.7) k/uL Basophils # 0.1 (0-0.2) k/uL Sodium (137-145) mmol/L Potassium (3.5-5.1) mmol/L Chloride (98-107) mmol/L Carbon Dioxide (22-30) mmol/L Anion Gap mmol/L BUN (7-17) mg/dL Creatinine (0.52-1.04) mg/dL Est GFR (CKD-EPI)AfAm (>60 ml/min/1.73 sqM) Est GFR (CKD-EPI)NonAf (>60 ml/min/1.73 sqM) Glucose (74-99) mg/dL Plasma Lactic Acid Peng (0.7-2.0) mmol/L Calcium (8.4-10.2) mg/dL Total Bilirubin (0.2-1.3) mg/dL AST (14-36) U/L ALT (4-34) U/L Alkaline Phosphatase (38-126) U/L Total Protein (6.3-8.2) g/dL Albumin (3.5-5.0) g/dL Urine Color Yellow Urine Appearance Clear (Clear) Urine pH 6.0 (5.0-8.0) Ur Specific [place] 1.026 (1.001-1.035) Urine Protein 1+ H (Negative) Urine Glucose (UA) Negative (Negative) Urine Ketones Trace H (Negative) Urine Blood Large H (Negative) Urine Nitrite Negative (Negative) Urine Bilirubin Negative (Negative) Urine Urobilinogen <2.0 (<2.0) mg/dL Ur Leukocyte Esterase Negative (Negative) Urine RBC >182 H (0-5) /hpf Urine WBC 5 (0-5) /hpf Ur Squamous Epith Cells 3 (0-4) /hpf Urine Bacteria Rare H (None) /hpf Urine Mucus Occasional H (None) /hpf Urine HCG, Qual Not Detected (Not Detectd) 03/16/20 03/16/20 Range/Units 13:57 13:57 WBC (3.8-10.6) k/uL RBC (3.80-5.40) m/uL Hgb (11.4-16.0) gm/dL Hct (34.0-46.0) % MCV (80.0-100.0) fL MCH (25.0-35.0) pg MCHC (31.0-37.0) g/dL RDW (11.5-15.5) % Plt Count (150-450) k/uL MPV Neutrophils % % Lymphocytes % % Monocytes % % Eosinophils % % Basophils % % Neutrophils # (1.3-7.7) k/uL Lymphocytes # (1.0-4.8) k/uL Monocytes # (0-1.0) k/uL Eosinophils # (0-0.7) k/uL Basophils # (0-0.2) k/uL Sodium 138 (137-145) mmol/L Potassium 4.7 (3.5-5.1) mmol/L Chloride 105 (98-107) mmol/L Carbon Dioxide 22 (22-30) mmol/L Anion Gap 11 mmol/L BUN 15 (7-17) mg/dL Creatinine 0.74 (0.52-1.04) mg/dL Est GFR (CKD-EPI)AfAm >90 (>60 ml/min/1.73 sqM) Est GFR (CKD-EPI)NonAf >90 (>60 ml/min/1.73 sqM) Glucose 81 (74-99) mg/dL Plasma Lactic Acid Peng 0.9 (0.7-2.0) mmol/L Calcium 10.3 H (8.4-10.2) mg/dL Total Bilirubin 1.1 (0.2-1.3) mg/dL AST 39 H (14-36) U/L ALT 22 (4-34) U/L Alkaline Phosphatase 64 (38-126) U/L Total Protein 8.3 H (6.3-8.2) g/dL Albumin 5.0 (3.5-5.0) g/dL Urine Color Urine Appearance (Clear) Urine pH (5.0-8.0) Ur Specific [place] (1.001-1.035) Urine Protein (Negative) Urine Glucose (UA) (Negative) Urine Ketones (Negative) Urine Blood (Negative) Urine Nitrite (Negative) Urine Bilirubin (Negative) Urine Urobilinogen (<2.0) mg/dL Ur Leukocyte Esterase (Negative) Urine RBC (0-5) /hpf Urine WBC (0-5) /hpf Ur Squamous Epith Cells (0-4) /hpf Urine Bacteria (None) /hpf Urine Mucus (None) /hpf Urine HCG, Qual (Not Detectd) Disposition Clinical Impression: Left lower quadrant pain, Kidney stone on left side, Hematuria Disposition: HOME SELF-CARE Condition: Stable Instructions (If sedation given, give patient instructions): Kidney Stones (ED) Additional Instructions: Please return to the Emergency Department if symptoms worsen or any other concerns. Recommend drinking plenty of fluids, may take Zofran for any additional nausea. Recommended taking Toradol or ibuprofen for pain relief. Please follow-up with your regular doctor. Prescriptions: Ketorolac [Toradol] 10 mg PO Q8HR #10 tab Is patient prescribed a controlled substance at d/c from ED?: No Referrals: Rd Rehman MD [Primary Care Provider] - 1-2 days
[2020-03-16 14:21] LABS: Basophils # (A) 0.1 k/uL (0-0.2); Basophils % (A) 1 %; Eosinophils # (A) 0.2 k/uL (0-0.7); Eosinophils % (A) 2 %; HCT 44.6 % (34.0-46.0); Lymphocytes # (A) 2.8 k/uL (1.0-4.8); Lymphocytes % (A) 30 %; MCH 30.7 pg (25.0-35.0); MCHC 33.7 g/dL (31.0-37.0); MCV 90.9 fL (80.0-100.0); Monocytes # (A) 0.5 k/uL (0-1.0); Monocytes % (A) 6 %; Neutrophils # (A) 5.7 k/uL (1.3-7.7); Neutrophils % (A) 61 %; Platelet Count 210 k/uL (150-450); RBC 4.91 m/uL (3.80-5.40); RDW 11.5 % (11.5-15.5); WBC 9.4 k/uL (3.8-10.6)
[2020-03-16 14:24] LABS: Appearance,Urine Clear (Clear); Bacteria,Urine Rare /hpf; Bilirubin,Urine Negative (Negative); Blood,Urine Large (Negative); Color,Urine Yellow; Glucose,Urine (UA) Negative (Negative); Ketones,Urine Trace (Negative); Leukocyte Esterase,Urine Negative (Negative); Mucus,Urine Occasional /hpf; Nitrite,Urine Negative (Negative); Protein,Urine 1+ (Negative); RBC,Urine >182 /hpf (0-5); Specific Gravity,Urine 1.026 (1.001-1.035); Squamous Epithelial Cell,Urine 3 /hpf (0-4); Urobilinogen,Urine <2.0 mg/dL (<2.0); WBC,Urine 5 /hpf (0-5)
[2020-03-16 14:34] LABS: ALT 22 U/L (4-34); AST 39 U/L (14-36); African American GFR (CKD) >90 (>60 ml/min/1.73 sqM); Alkaline Phosphatase 64 U/L (38-126); Anion Gap 11 mmol/L; Blood Urea Nitrogen 15 mg/dL (7-17); Calcium 10.3 mg/dL (8.4-10.2); Carbon Dioxide 22 mmol/L (22-30); Chloride 105 mmol/L (98-107); Glucose 81 mg/dL (74-99); Non-African American GFR(CKD) >90 (>60 ml/min/1.73 sqM); Sodium 138 mmol/L (137-145); Total Bilirubin 1.1 mg/dL (0.2-1.3); Total Protein 8.3 g/dL (6.3-8.2)
--- NOTE | 2020-03-16 14:40 | US ---
EXAMINATION TYPE: US transvaginal DATE OF EXAM: 03/16/2020 COMPARISON: 02/28/2019 CLINICAL HISTORY: LLQ pain. Hx right tubal ectopic with tube removed. LLQ pain. TECHNIQUE: Transvaginal (TV). Date of LMP: 03/01/2020, E1 EXAM MEASUREMENTS: Uterus: 8.9 x 5.1 x 3.9 cm Endometrial Stripe: 0.8 cm Right Ovary: 3.5 x 1.9 x 2.0 cm Left Ovary: 2.4 x 1.5 x 1.3 cm 1. Uterus: Anteverted Peripheral vascularity seen in myometrium 2. Endometrium: wnl 3. Right Ovary: follicles seen 4. Left Ovary: follicles seen Spectral, color and waveform doppler imaging shows good arterial and venous flow within the ovaries ; there is no evidence for ovarian torsion. 5. Bilateral Adnexa: wnl 6. Posterior cul-de-sac: Free fluid seen in anterior and posterior cul de sac IMPRESSION: Small amount of free fluid in the pelvis could be physiologic. This is a change compared to old exam. No evidence of ovarian torsion.
[2020-03-16 14:43] LABS: Potassium 4.7 mmol/L (3.5-5.1)
--- NOTE | 2020-03-16 15:07 | CT ---
EXAMINATION TYPE: CT abdomen pelvis wo con DATE OF EXAM: 03/16/2020 COMPARISON: 02/02/2013 HISTORY: LLQ pain that radiates. Suspect stone CT DLP: 322.7 mGycm Automated exposure control for dose reduction was used. Images were obtained from the diaphragm to the floor the pelvis with no contrast. FINDINGS: Lung bases are clear. There is no pleural effusion. Heart size is normal. There is no pericardial eff usion. Liver spleen stomach pancreas appear intact. The bile ducts are not dilated. Gallbladder appears norm al. There is no adrenal mass. Kidneys have normal size and contour. There is no hydronephrosis. There is no evidence of definite renal calculus. The ureters are not dilated. Bladder distends smoothly. There is tiny air bubble in the urinary bladder that could be from catheterization. There is mild free flu id in the cul-de-sac. Fluid has low attenuation. Uterus is anteverted. There is no evidence of pelvic mass. Appendix is posterior and appears normal. There is no inguinal hernia. There is no mesenteric edema. There is no ascites or free air. There is no bowel obstruction. Lumbar vertebra have normal spacing and alignment. Posterior elements are intact. The bony pelvis is intact. Hip joints appear normal. IMPRESSION: There is low-density mild free fluid in the pelvis. No evidence of a pelvic mass. Normal appendix. No sign of renal stone or obstruction.
[2020-03-16] MEDS ORDERED: ONDANSETRON 4 MG ODT STARTER PACK 2 TAB BTL PO STA (15:36)
== END 2020-03-16 15:48 | disposition home or self-care (01) ==
LOC: EC 13:22
DX: N20.0 Calculus of kidney (principal); E11.9 Type 2 diabetes mellitus without complications; F17.200 Nicotine dependence, unspecified, uncomplicated; Z79.4 Long term (current) use of insulin; Z91.040 Latex allergy status
CPT/HCPCS: 36415; 80053; 83605; 85025; 81001; 81025; 93975; 76830; 74176; 99284; 96374; 96375; 96361; J2405; J1885; S0119

== ENCOUNTER 2020-07-14 09:59 | Emergency (ER) | payer OTHER ==
[2020-07-14] MEDS ORDERED: SODIUM CHLORIDE 0.9% 1,000 ML IV STA (10:29)
[2020-07-14] MEDS ORDERED: ONDANSETRON 4 MG/2 ML VIAL IVP STA (10:29)
--- NOTE | 2020-07-14 10:38 | ED ---
Abdominal Pain HPI - General Chief Complaint: Abdominal Pain Stated Complaint: abd pain Time Seen by Provider: 07/14/20 10:21 Source: patient, RN notes reviewed Mode of arrival: wheelchair Limitations: no limitations - History of Present Illness Initial Comments: Patient is a 24-year-old female that presents to emergency department complaining of abdominal pain, bright red blood per rectum, and some vaginal bleeding. She notes that she recently went on the Depo shot for control. This was approximately 1 month ago. She notes that she had intercourse last night for the first time months but had to stop due to increased pain. She noted that since then she's been having little bit of bleeding. She also notes that she has bright red blood per rectum since then but denies any intercourse. She did note that she does have a history of several D&Cs in her right tube removed due to an ectopic . She did appear to be in moderate distress while sitting up in bed during the exam interview. She noted that she was just scared as all this started happening after her Depo shot. She also noted that her limbs feel like they're going upper and lower. She noted that this time it feels similar to the one time she had an ectopic . She denied any chest pain shortness of breath headache diarrhea constipation melena hematemesis vaginal discharge or follow odors, dysuria. - Related Data Home Medications Medication Instructions Recorded Confirmed medroxyPROGESTERone [Depo-Provera] 150 mg IM Q84D 07/14/20 07/14/20 Allergies Allergy/AdvReac Type Severity Reaction Status Date / Time latex Allergy Swelling Verified 07/14/20 10:32 Review of Systems ROS Statement: Those systems with pertinent positive or pertinent negative responses have been documented in the HPI. ROS Other: All systems not noted in ROS Statement are negative. Past Medical History Past Medical History: Diabetes Mellitus, Musculoskeletal Disorder Additional Past Medical History / Comment(s): OVARIAN CYSTS, vaginal cysts. SCOLIOSIS; miscarriage x2, RA, ectopic. PID History of Any Multi-Drug Resistant Organisms: None Reported Past Surgical History: No Surgical Hx Reported Additional Past Surgical History / Comment(s): DENTAL PROCEDURE, D and C, right tube removed Past Anesthesia/Blood Transfusion Reactions: No Reported Reaction Past Psychological History: Anxiety, Panic Disorder Smoking Status: Current every day smoker Past Alcohol Use History: Occasional Past Drug Use History: Marijuana - Past Family History Mother Sister(s) Family Medical History: Cancer General Exam Limitations: no limitations General appearance: alert, in no apparent distress, in distress Head exam: Present: atraumatic, normocephalic, normal inspection Eye exam: Present: normal appearance, PERRL, EOMI. Absent: scleral icterus, conjunctival injection, periorbital swelling Neck exam: Present: normal inspection. Absent: tenderness, meningismus, lymphadenopathy Respiratory exam: Present: normal lung sounds bilaterally. Absent: respiratory distress, wheezes, rales, rhonchi, stridor Cardiovascular Exam: Present: regular rate, normal rhythm, normal heart sounds. Absent: systolic murmur, diastolic murmur, rubs, gallop, clicks GI/Abdominal exam: Present: soft, tenderness (Generalized throughout), normal bowel sounds. Absent: distended, guarding, rebound, rigid Rectal exam: Present: normal inspection, normal rectal tone. Absent: hemorrhoids, mass, tenderness External exam: Present: normal external exam Extremities exam: Present: normal inspection, full ROM, normal capillary refill. Absent: tenderness, pedal edema, joint swelling, calf tenderness Neurological exam: Present: alert, oriented X3, CN II-XII intact Psychiatric exam: Present: normal affect, normal mood Skin exam: Present: warm, dry, intact, normal color. Absent: rash Course Vital Signs 07/14/20 10:10 Temperature 97.5 F L Pulse Rate 113 H Respiratory 20 Rate Blood Pressure 127/63 O2 Sat by Pulse 98 Oximetry Medical Decision Making - Medical Decision Making 26-year-old female complaining of abdominal pain, bright red blood per rectum, some vaginal bleeding after intercourse last night. Labs, CT of the abdomen and pelvis, ultrasound of the pelvis, 4 mg Zofran, 1 L normal saline ordered. Labs: Mild elevated WBCs at 12.7, rest labs unremarkable line imaging negative for any acute process. Case discussed with Dr. Mustafa, patient can discharge home with follow-up to GI specialist. - Lab Data Result diagrams: 07/14/20 11:01 07/14/20 11:01 Lab Results 07/14/20 07/14/20 07/14/20 Range/Units 11:01 11:01 11:01 WBC 12.7 H (3.8-10.6) k/uL RBC 5.00 (3.80-5.40) m/uL Hgb 15.4 (11.4-16.0) gm/dL Hct 44.1 (34.0-46.0) % MCV 88.2 (80.0-100.0) fL MCH 30.9 (25.0-35.0) pg MCHC 35.0 (31.0-37.0) g/dL RDW 11.5 (11.5-15.5) % Plt Count 241 (150-450) k/uL MPV 7.8 Neutrophils % 84 % Lymphocytes % 10 % Monocytes % 4 % Eosinophils % 1 % Basophils % 0 % Neutrophils # 10.7 H (1.3-7.7) k/uL Lymphocytes # 1.3 (1.0-4.8) k/uL Monocytes # 0.5 (0-1.0) k/uL Eosinophils # 0.1 (0-0.7) k/uL Basophils # 0.0 (0-0.2) k/uL PT 10.2 (9.0-12.0) sec INR 0.9 (<1.2) APTT 22.8 (22.0-30.0) sec Sodium (137-145) mmol/L Potassium (3.5-5.1) mmol/L Chloride (98-107) mmol/L Carbon Dioxide (22-30) mmol/L Anion Gap mmol/L BUN (7-17) mg/dL Creatinine (0.52-1.04) mg/dL Est GFR (CKD-EPI)AfAm (>60 ml/min/1.73 sqM) Est GFR (CKD-EPI)NonAf (>60 ml/min/1.73 sqM) Glucose (74-99) mg/dL Calcium (8.4-10.2) mg/dL Total Bilirubin (0.2-1.3) mg/dL AST (14-36) U/L ALT (4-34) U/L Alkaline Phosphatase (38-126) U/L Total Protein (6.3-8.2) g/dL Albumin (3.5-5.0) g/dL Amylase (30-110) U/L Lipase (23-300) U/L HCG, Quant mIU/mL Urine Color Yellow Urine Appearance Clear (Clear) Urine pH 8.5 H (5.0-8.0) Ur Specific [place] 1.021 (1.001-1.035) Urine Protein Trace H (Negative) Urine Glucose (UA) Negative (Negative) Urine Ketones 2+ H (Negative) Urine Blood Moderate H (Negative) Urine Nitrite Negative (Negative) Urine Bilirubin Negative (Negative) Urine Urobilinogen <2.0 (<2.0) mg/dL Ur Leukocyte Esterase Negative (Negative) Urine RBC 8 H (0-5) /hpf Urine WBC 1 (0-5) /hpf Ur Squamous Epith Cells <1 (0-4) /hpf Urine HCG, Qual (Not Detectd) Stool Occult Blood (Negative) 07/14/20 07/14/20 07/14/20 Range/Units 11:01 11:01 11:01 WBC (3.8-10.6) k/uL RBC (3.80-5.40) m/uL Hgb (11.4-16.0) gm/dL Hct (34.0-46.0) % MCV (80.0-100.0) fL MCH (25.0-35.0) pg MCHC (31.0-37.0) g/dL RDW (11.5-15.5) % Plt Count (150-450) k/uL MPV Neutrophils % % Lymphocytes % % Monocytes % % Eosinophils % % Basophils % % Neutrophils # (1.3-7.7) k/uL Lymphocytes # (1.0-4.8) k/uL Monocytes # (0-1.0) k/uL Eosinophils # (0-0.7) k/uL Basophils # (0-0.2) k/uL PT (9.0-12.0) sec INR (<1.2) APTT (22.0-30.0) sec Sodium 141 (137-145) mmol/L Potassium 4.0 (3.5-5.1) mmol/L Chloride 108 H (98-107) mmol/L Carbon Dioxide 20 L (22-30) mmol/L Anion Gap 13 mmol/L BUN 12 (7-17) mg/dL Creatinine 0.71 (0.52-1.04) mg/dL Est GFR (CKD-EPI)AfAm >90 (>60 ml/min/1.73 sqM) Est GFR (CKD-EPI)NonAf >90 (>60 ml/min/1.73 sqM) Glucose 118 H (74-99) mg/dL Calcium 10.4 H (8.4-10.2) mg/dL Total Bilirubin 0.8 (0.2-1.3) mg/dL AST 28 (14-36) U/L ALT 21 (4-34) U/L Alkaline Phosphatase 70 (38-126) U/L Total Protein 7.8 (6.3-8.2) g/dL Albumin 5.0 (3.5-5.0) g/dL Amylase 91 (30-110) U/L Lipase 88 (23-300) U/L HCG, Quant <2.4 mIU/mL Urine Color Urine Appearance (Clear) Urine pH (5.0-8.0) Ur Specific [place] (1.001-1.035) Urine Protein (Negative) Urine Glucose (UA) (Negative) Urine Ketones (Negative) Urine Blood (Negative) Urine Nitrite (Negative) Urine Bilirubin (Negative) Urine Urobilinogen (<2.0) mg/dL Ur Leukocyte Esterase (Negative) Urine RBC (0-5) /hpf Urine WBC (0-5) /hpf Ur Squamous Epith Cells (0-4) /hpf Urine HCG, Qual Not Detected (Not Detectd) Stool Occult Blood Positive H (Negative) - Radiology Data Radiology results: report reviewed, image reviewed Transvaginal ultrasound: Uterus: Anteverted. There is a 3 mm echogenic focus. Likely calcification within the cervix. Endometrium is within normal limits, right ovary follicle seen, left ovary follicle seen. No evidence for ovarian torsion. Bilateral adnexa within normal limits. Posterior cul-de-sac within normal limits. CT of the abdomen and pelvis: No significant new or acute findings seen to account for patient's clinical symptoms. Disposition Clinical Impression: Bright red blood per rectum, Abdominal pain Disposition: HOME SELF-CARE Condition: Stable Instructions (If sedation given, give patient instructions): Abdominal Pain (ED) Additional Instructions: Please return to the Emergency Department if symptoms worsen or any other concerns. Follow-up with GI specialist in the next 1-3 days. Follow-up with primary care as needed. Take Tylenol 3 as prescribed. Increase oral fluids and dietary fiber. Is patient prescribed a controlled substance at d/c from ED?: No Referrals: Rd Rehman MD [Primary Care Provider] - 1-2 days Kyle Jett MD [STAFF PHYSICIAN] - 1-2 days Time of Disposition: 12:42
[2020-07-14] MEDS ORDERED: PANTOPRAZOLE 40 MG/10 ML VIAL IVP STA (10:39)
[2020-07-14 11:15] LABS: Basophils % (A) 0 %; Eosinophils # (A) 0.1 k/uL (0-0.7); Eosinophils % (A) 1 %; HCT 44.1 % (34.0-46.0); HGB 15.4 gm/dL (11.4-16.0); Lymphocytes # (A) 1.3 k/uL (1.0-4.8); Lymphocytes % (A) 10 %; MCH 30.9 pg (25.0-35.0); MCV 88.2 fL (80.0-100.0); Mean Platelet Volume 7.8; Monocytes # (A) 0.5 k/uL (0-1.0); Monocytes % (A) 4 %; Neutrophils # (A) 10.7 k/uL (1.3-7.7); Neutrophils % (A) 84 %; Platelet Count 241 k/uL (150-450); RDW 11.5 % (11.5-15.5); WBC 12.7 k/uL (3.8-10.6)
[2020-07-14 11:26] LABS: INR 0.9 (<1.2); Partial Thromboplastin Time 22.8 sec (22.0-30.0); Prothrombin Time 10.2 sec (9.0-12.0)
[2020-07-14 11:27] LABS: Appearance,Urine Clear (Clear); Bilirubin,Urine Negative (Negative); Blood,Urine Moderate (Negative); Color,Urine Yellow; Glucose,Urine (UA) Negative (Negative); Ketones,Urine 2+ (Negative); Leukocyte Esterase,Urine Negative (Negative); Nitrite,Urine Negative (Negative); PH, Urine 8.5 (5.0-8.0); Protein,Urine Trace (Negative); RBC,Urine 8 /hpf (0-5); Specific Gravity,Urine 1.021 (1.001-1.035); Squamous Epithelial Cell,Urine <1 /hpf (0-4); Urobilinogen,Urine <2.0 mg/dL (<2.0); WBC,Urine 1 /hpf (0-5)
[2020-07-14] MEDS ORDERED: MORPHINE SULFATE 4 MG/ML SYRINGE IVP STA (11:34)
[2020-07-14 11:37] LABS: ALT 21 U/L (4-34); AST 28 U/L (14-36); African American GFR (CKD) >90 (>60 ml/min/1.73 sqM); Alkaline Phosphatase 70 U/L (38-126); Amylase 91 U/L (30-110); Anion Gap 13 mmol/L; Blood Urea Nitrogen 12 mg/dL (7-17); Calcium 10.4 mg/dL (8.4-10.2); Carbon Dioxide 20 mmol/L (22-30); Chloride 108 mmol/L (98-107); Glucose 118 mg/dL (74-99); Lipase 88 U/L (23-300); Non-African American GFR(CKD) >90 (>60 ml/min/1.73 sqM); Sodium 141 mmol/L (137-145); Total Bilirubin 0.8 mg/dL (0.2-1.3); Total Protein 7.8 g/dL (6.3-8.2)
[2020-07-14 11:54] LABS: HCG,Quantitative Serum <2.4 mIU/mL
--- NOTE | 2020-07-14 11:54 | US ---
EXAMINATION TYPE: US transvaginal plus Dopplers DATE OF EXAM: 07/14/2020 COMPARISON: NONE CLINICAL HISTORY: 24-year-old female with pain TECHNIQUE: Transvaginal (TV). FINDINGS: EXAM MEASUREMENTS: Uterus: 6.3 x 3.0 x 4.7 cm Endometrial Stripe: .2 cm Right Ovary: 2.3 x 1.9 x 1.8 cm Left Ovary: 2.3 x 1.9 x 1.7 cm 1. Uterus: Anteverted. There is a 3 mm echogenic focus, likely calcification within the cervix. 2. Endometrium: wnl 3. Right Ovary: Follicles seen 4. Left Ovary: Follicles seen Spectral, color and waveform doppler imaging shows good arterial and venous flow within the ovaries ; there is no evidence for ovarian torsion. 5. Bilateral Adnexa: wnl 6. Posterior cul-de-sac: wnl IMPRESSION: 1. Follicular changes in both ovaries. No sonographic evidence for ovarian torsion. 2. A 3 mm focus of calcification within the cervix. Findings could be from prior infection or instrum entation. Correlate with annual Pap smear results.
--- NOTE | 2020-07-14 12:18 | CT ---
EXAMINATION TYPE: CT abdomen pelvis w con DATE OF EXAM: 07/14/2020 HISTORY: pelvic pain and nausea. CT DLP: 584.5mGycm Automated Exposure Control for Dose Reduction was Utilized. CONTRAST: CT scan of the abdomen and pelvis is performed without oral but with IV Contrast, patient injected wi th 100 mL of Isovue 300. COMPARISON: CT March 16, 2020 FINDINGS: LUNG BASES: No significant abnormality is appreciated. LIVER/GB: No significant abnormality is appreciated. PANCREAS: No significant abnormality is seen. SPLEEN: No significant abnormality is seen. ADRENALS: No significant abnormality is seen. KIDNEYS: No significant abnormality is seen. BOWEL: Suboptimal evaluation without enteric contrast and patient having little intra-abdominal fat. No suspicious small or large bowel dilatation is seen. Low-lying cecum into the right pelvis is redem onstrated. Appendix within normal limits from cecum in the right pelvis. Mild wall thickening of the left hand sigmoid colon presumed product of poor distention. Mild uncomplicated colitis thought much less likely. UTERUS/ADNEXA: Anteverted uterus. Ovaries are symmetric and within normal limits in size. LYMPH NODES: No greater than 1cm abdominal or pelvic lymph nodes are appreciated. OSSEOUS STRUCTURES: No significant abnormality is seen. OTHER: No significant additional abnormality is seen. IMPRESSION: No significant new or acute finding is seen to account for patient's clinical symptoms.
[2020-07-14] MEDS ORDERED: ACET/COD 300 MG/30 MG STARTER PACK 6 TAB BTL PO STA (12:41)
[2020-07-14 13:09] VITALS: BP 122/70; PULSE 78; RESP 18; TEMP 97.9
== END 2020-07-14 13:09 | disposition home or self-care (01) ==
LOC: EC 09:59
DX: K62.5 Hemorrhage of anus and rectum (principal); R10.84 Generalized abdominal pain; N93.9 Abnormal uterine and vaginal bleeding, unspecified; E11.9 Type 2 diabetes mellitus without complications; F41.9 Anxiety disorder, unspecified; F12.90 Cannabis use, unspecified, uncomplicated; F17.200 Nicotine dependence, unspecified, uncomplicated; Z79.3 Long term (current) use of hormonal contraceptives
CPT/HCPCS: 36415; 80053; 82150; 83690; 85025; 85610; 85730; 82272; 81001; 81025; 84702; 93975; 76830; 74177; 99284; 96374; 96375 ×2; J2270; J2405; C9113; Q9967

== ENCOUNTER 2020-10-25 11:26 | Emergency (ER) | payer OTHER ==
[2020-10-25 11:41] VITALS: TEMP 97.9
[2020-10-25] MEDS ORDERED: DIPH,PERTUS(ACELL)TETVAC-LF 0.5 ML VIAL IM ONE (12:53)
[2020-10-25] MEDS ORDERED: BACITRACIN OINT 1 EACH PACKET TOPICAL STA (13:05)
[2020-10-25] MEDS ORDERED: CEPHALEXIN 500MG STARTER PACK 4 CAP BTL PO STA (13:06)
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
[2020-10-25] MEDS ORDERED: ACET/COD 300 MG/30 MG STARTER PACK 6 TAB BTL PO STA (13:23)
[2020-10-25 14:36] VITALS: BP 116/65; PULSE 72; RESP 17
== END 2020-10-25 14:41 | disposition home or self-care (01) ==
LOC: EC 11:26
DX: T24.211A Burn of second degree of right thigh, initial encounter (principal); T21.22XA Burn of second degree of abdominal wall, initial encounter; T31.0 Burns involving less than 10% of body surface; E11.9 Type 2 diabetes mellitus without complications; F17.200 Nicotine dependence, unspecified, uncomplicated; Z91.040 Latex allergy status; Z23 Encounter for immunization; X10.1XXA Contact with hot food, initial encounter; Y99.0 Civilian activity done for income or pay
CPT/HCPCS: 16020; 90471; 90715; 99283

== ENCOUNTER 2021-02-20 14:09 | Emergency (ER) | payer OTHER ==
[2021-02-20 14:33] VITALS: BP 115/76; PULSE 91; RESP 18; TEMP 98.2
[2021-02-20] MEDS ORDERED: SODIUM CHLORIDE 0.9% 500 ML 500 ML IV STA (15:27)
--- NOTE | 2021-02-20 15:31 | ED ---
General Adult HPI - General Chief complaint: Vaginal Bleeding Stated complaint: Vaginal bleeding Time Seen by Provider: 02/20/21 15:20 Source: patient, RN notes reviewed, old records reviewed Mode of arrival: ambulatory Limitations: no limitations - History of Present Illness Initial comments: This is a well-appearing 25-year-old female who presents to the emergency room with complaints of vaginal bleeding, passing large clots that look something like tissue. Patient states that she did have unprotected sex and took a Plan B pill on 02/02. She seen her primary care doctor a week ago was given tramadol and she did discuss putting her on Depo-Provera. Last night she had increasing pain with the bleeding which concerned her. She does have a history of ectopic pregnancies and only has one fallopian tube. She is concerned for ectopic which is what brought her to the emergency room for evaluation. She is a pack-a-day smoker. No other medical history. -: days(s) (2) Severity scale (1-10): 3 Quality: other (cramping) Consistency: intermittent Associated Symptoms: other (vaginal bleeding) - Related Data Home Medications Medication Instructions Recorded Confirmed medroxyPROGESTERone [Depo-Provera] 150 mg IM Q84D 07/14/20 07/14/20 Previous Rx's Medication Instructions Recorded Acetaminophen-Codeine 300-30mg 1 tab PO Q8H PRN #10 tablet 10/25/20 [Tylenol #3] Bacitracin/Polymyx Oint 1 applic TOPICAL DAILY 14 Days #50 10/25/20 [Polysporin Oint] gm Cephalexin [Keflex] 500 mg PO Q6HR 10 Days #40 cap 10/25/20 Allergies Allergy/AdvReac Type Severity Reaction Status Date / Time latex Allergy Swelling Verified 02/20/21 14:33 Review of Systems ROS Statement: Those systems with pertinent positive or pertinent negative responses have been documented in the HPI. ROS Other: All systems not noted in ROS Statement are negative. Past Medical History Past Medical History: Diabetes Mellitus, Musculoskeletal Disorder Additional Past Medical History / Comment(s): OVARIAN CYSTS, vaginal cysts. SCOLIOSIS; miscarriage x2, RA, ectopic. PID History of Any Multi-Drug Resistant Organisms: None Reported Past Surgical History: No Surgical Hx Reported Additional Past Surgical History / Comment(s): DENTAL PROCEDURE, D and C, right tube removed Past Anesthesia/Blood Transfusion Reactions: No Reported Reaction Past Psychological History: Anxiety, Panic Disorder Smoking Status: Current every day smoker Past Alcohol Use History: Occasional Past Drug Use History: Marijuana - Past Family History Mother Sister(s) Family Medical History: Cancer General Exam Limitations: no limitations General appearance: alert, in no apparent distress Head exam: Present: atraumatic, normocephalic, normal inspection Eye exam: Present: normal appearance, EOMI. Absent: scleral icterus, conjunctival injection Respiratory exam: Present: normal lung sounds bilaterally. Absent: respiratory distress, wheezes, rales, rhonchi, stridor, chest wall tenderness, accessory muscle use, decreased breath sounds, prolonged expiratory Cardiovascular Exam: Present: regular rate, normal rhythm, normal heart sounds. Absent: systolic murmur, diastolic murmur, rubs, gallop, clicks GI/Abdominal exam: Present: soft, normal bowel sounds. Absent: distended, t enderness, guarding, rebound, rigid Extremities exam: Present: normal inspection, full ROM, normal capillary refill. Absent: tenderness, pedal edema, joint swelling, calf tenderness Back exam: Present: normal inspection, full ROM. Absent: tenderness, CVA tenderness (R), CVA tenderness (L), rash noted Neurological exam: Present: alert, oriented X3 Psychiatric exam: Present: normal affect, normal mood Skin exam: Present: warm, dry, intact, normal color. Absent: rash, cyanosis, diaphoretic, petechiae, pallor Course Vital Signs 02/20/21 14:30 Temperature 98.2 F Pulse Rate 91 Respiratory 18 Rate Blood Pressure 115/76 O2 Sat by Pulse 100 Oximetry Medical Decision Making - Medical Decision Making 25-year-old female presents with complaints of vaginal bleeding, passing large clots after taking Plan B pill on 02/02. She does have a history of ectopic pregnancies and only has one fallopian tube. She is concerned for ectopic. Urine test is negative. Hemoglobin and hematocrit are stable. Electrolytes unremarkable. The ultrasound shows no evidence of IUP no evidence of ovarian torsion. There is no visualized intrauterine . There is a 1.8 cm corpus luteum of the right ovary. Patient is feeling better and ready to be discharged home. She does have an appointment scheduled with Dr. Johnson to discuss control. Attending is - Lab Data Result diagrams: 02/20/21 17:00 02/20/21 17:00 Lab Results 02/20/21 02/20/21 02/20/21 Range/Units 16:16 17:00 17:00 WBC 8.3 (3.8-10.6) k/uL RBC 4.74 (3.80-5.40) m/uL Hgb 14.6 (11.4-16.0) gm/dL Hct 44.9 (34.0-46.0) % MCV 94.8 (80.0-100.0) fL MCH 30.8 (25.0-35.0) pg MCHC 32.5 (31.0-37.0) g/dL RDW 12.5 (11.5-15.5) % Plt Count 218 (150-450) k/uL MPV 8.4 Neutrophils % 61 % Lymphocytes % 29 % Monocytes % 6 % Eosinophils % 2 % Basophils % 1 % Neutrophils # 5.1 (1.3-7.7) k/uL Lymphocytes # 2.4 (1.0-4.8) k/uL Monocytes # 0.5 (0-1.0) k/uL Eosinophils # 0.2 (0-0.7) k/uL Basophils # 0.1 (0-0.2) k/uL Sodium 138 (137-145) mmol/L Potassium 4.8 (3.5-5.1) mmol/L Chloride 107 (98-107) mmol/L Carbon Dioxide 21 L (22-30) mmol/L Anion Gap 10 mmol/L BUN 9 (7-17) mg/dL Creatinine 0.65 (0.52-1.04) mg/dL Est GFR (CKD-EPI)AfAm >90 (>60 ml/min/1.73 sqM) Est GFR (CKD-EPI)NonAf >90 (>60 ml/min/1.73 sqM) Glucose 88 (74-99) mg/dL Calcium 9.5 (8.4-10.2) mg/dL Total Bilirubin 1.1 (0.2-1.3) mg/dL AST 39 H (14-36) U/L ALT 18 (4-34) U/L Alkaline Phosphatase 67 (38-126) U/L Total Protein 7.9 (6.3-8.2) g/dL Albumin 4.7 (3.5-5.0) g/dL HCG, Quant <2.4 mIU/mL Urine HCG, Qual Not Detected (Not Detectd) Disposition Clinical Impression: Vaginal bleeding, Pelvic pain Disposition: HOME SELF-CARE Condition: Good Additional Instructions: Return to the emergency room with any new or concerning symptoms. Follow-up with Dr. Johnson regarding control and continuation of care. Is patient prescribed a controlled substance at d/c from ED?: No Referrals: Rd Rehman MD [Primary Care Provider] - 1-2 days Time of Disposition: 17:31
--- NOTE | 2021-02-20 16:37 | US ---
EXAMINATION TYPE: US transvaginal plus Dopplers DATE OF EXAM: 02/20/2021 COMPARISON: 07/14/2020 CLINICAL HISTORY: 25-year-old female ectopic. Patient think she is but has not taken pregnan cy test. Hx of ectopic with right tube removed. Left side pain. Spotting. Took a plan B pill. TECHNIQUE: Transvaginal (TV). Color Doppler spectral waveform analysis of the ovarian arteries and veins. Date of LMP: 02/18/2021, E1 FINDINGS: EXAM MEASUREMENTS: Uterus: 8.2 x 5.2 x 3.7 cm Endometrial Stripe: 0.3 cm Right Ovary: 3.1 x 1.9 x 1.7 cm Left Ovary: 2.5 x 2.0 x 1.7 cm 1. Uterus: Anteverted. Prominent myometrial vessels noted. 2. Endometrium: wnl 3. Right Ovary: Hypoechoic area with peripheral vascularity located within the ovary measuring 1.6 x 1.4 x 1.8 cm 4. Left Ovary: Follicles seen Spectral, color and waveform doppler imaging shows good arterial and venous flow within the ovaries ; there is no evidence for ovarian torsion. 5. Bilateral Adnexa: wnl 6. Posterior cul-de-sac: no free fluid IMPRESSION: 1. No visualized intrauterine . In the setting of positive test, differential cons iderations include too early to visualize , failed , and nonvisualized ectopic preg ericka. Recommend serial beta-hCG. 2. A 1.8 cm corpus luteum of the right ovary. 3. No sonographic evidence for ovarian torsion.
[2021-02-20 17:19] LABS: ALT 18 U/L (4-34); AST 39 U/L (14-36); African American GFR (CKD) >90 (>60 ml/min/1.73 sqM); Albumin 4.7 g/dL (3.5-5.0); Alkaline Phosphatase 67 U/L (38-126); Anion Gap 10 mmol/L; Blood Urea Nitrogen 9 mg/dL (7-17); Calcium 9.5 mg/dL (8.4-10.2); Carbon Dioxide 21 mmol/L (22-30); Chloride 107 mmol/L (98-107); Glucose 88 mg/dL (74-99); Non-African American GFR(CKD) >90 (>60 ml/min/1.73 sqM); Sodium 138 mmol/L (137-145); Total Bilirubin 1.1 mg/dL (0.2-1.3); Total Protein 7.9 g/dL (6.3-8.2)
[2021-02-20 17:21] LABS: Basophils # (A) 0.1 k/uL (0-0.2); Basophils % (A) 1 %; Eosinophils # (A) 0.2 k/uL (0-0.7); Eosinophils % (A) 2 %; HCT 44.9 % (34.0-46.0); HGB 14.6 gm/dL (11.4-16.0); Lymphocytes # (A) 2.4 k/uL (1.0-4.8); Lymphocytes % (A) 29 %; MCH 30.8 pg (25.0-35.0); MCHC 32.5 g/dL (31.0-37.0); MCV 94.8 fL (80.0-100.0); Mean Platelet Volume 8.4; Monocytes # (A) 0.5 k/uL (0-1.0); Monocytes % (A) 6 %; Neutrophils # (A) 5.1 k/uL (1.3-7.7); Neutrophils % (A) 61 %; Platelet Count 218 k/uL (150-450); RBC 4.74 m/uL (3.80-5.40); RDW 12.5 % (11.5-15.5); WBC 8.3 k/uL (3.8-10.6)
[2021-02-20 17:22] LABS: Potassium 4.8 mmol/L (3.5-5.1)
[2021-02-20 17:35] LABS: HCG,Quantitative Serum <2.4 mIU/mL
== END 2021-02-20 18:03 | disposition home or self-care (01) ==
LOC: EC 14:09
DX: N93.9 Abnormal uterine and vaginal bleeding, unspecified (principal); R10.2 Pelvic and perineal pain; E11.9 Type 2 diabetes mellitus without complications; F41.9 Anxiety disorder, unspecified; F17.200 Nicotine dependence, unspecified, uncomplicated; F12.90 Cannabis use, unspecified, uncomplicated; Z91.040 Latex allergy status
CPT/HCPCS: 36415; 76830; 80053; 81025; 84702; 85025; 93975; 99284

== ENCOUNTER → 2021-09-21 | Outpatient (CLI) | payer OTHER | END | disposition home or self-care (01) | LOC: LABWHC1 14:49 | PROVIDERS: ATTEND Obstetrics & Gynecology | DX: N94.89 Other specified conditions associated with female genital organs and menstrual cycle (principal); N91.2 Amenorrhea, unspecified | CPT/HCPCS: 36415; 84702 ==

== ENCOUNTER 2022-05-14 09:48 | Day surgery (SDC) | payer OTHER ==
[~2022-05-14 09:48] MED LIST: LACTATED RINGERS 1,000 ML IV SCH
[2022-05-14 10:44] VITALS: RESP 16; TEMP 97.8
[2022-05-14] MEDS ORDERED: ONDANSETRON 4 MG/2 ML VIAL ONE (10:44)
[2022-05-14] MEDS ORDERED: LIDOCAINE 1% (10MG/ML) FOR IV START INTRADERMA ONE (10:45)
[2022-05-14 10:49] LABS: Glucose,Whole Blood 93 mg/dL (70-110)
[2022-05-14] MEDS ORDERED: PROPOFOL 10 MG/ML 20 ML VIAL IV ONE (10:58)
--- NOTE | 2022-05-14 11:05 | P.PCN ---
Date of Procedure: 05/14/22 Procedure(s) Performed: BRIEF HISTORY: Patient is a 26-year-old, pleasant, white female scheduled for an upper endoscopy as a part of evaluation of intermittent episodes of nausea vomiting and abdominal pain.. PROCEDURE PERFORMED: Esophagogastroduodenoscopy with biopsy. PREOPERATIVE DIAGNOSIS: Intermittent episodes of nausea vomiting. IV sedation per anesthesia. PROCEDURE: After informed consent was obtained, the patient was brought into the endoscopy unit. IV sedation was administered by Anesthesia under continuous monitoring. Initially the Olympus GIF-140 video endoscope was inserted into the mouth. Esophagus intubated without any difficulty. It was gradually advanced into the stomach and duodenum and carefully examined. The bulb and the second part of the duodenum appeared normal. Biopsies were done from the duodenum to rule out celiac disease. The scope at this time was withdrawn to the stomach, adequately insufflated with air, and upon careful examination, mucosa of the antrum, had mild mottling of the mucosa and biopsies were done from this area. Mucosa body, cardia and the fundus appeared normal. The scope was then withdrawn into the esophagus. The GE junction was located at 39 cm from the incisors. The esophagus appeared normal. There were no erosions or ulcerations seen and the patient tolerated the procedure well. IMPRESSION: 1. Mild antral gastritis but no evidence of peptic ulcer disease. 2. Normal-appearing esophagus with no evidence of esophagitis. RECOMMENDATIONS: The findings of this examination were discussed with the patient as well as a family. She was advised to follow with the biopsy results. I suggested that she try [id number] Pepcid 20 mg twice daily as needed for the nausea vomiting..
[2022-05-14 12:20] VITALS: BP 108/63; PULSE 53
== END 2022-05-14 12:38 | disposition home or self-care (01) ==
LOC: ORWHC2ENDO 09:48
PROVIDERS: ATTEND Internal Medicine Gastroenterology
DX: K29.50 Unspecified chronic gastritis without bleeding (principal); K31.89 Other diseases of stomach and duodenum; K21.9 Gastro-esophageal reflux disease without esophagitis; M06.9 Rheumatoid arthritis, unspecified; Z72.0 Tobacco use; Z91.040 Latex allergy status; Z79.899 Other long term (current) drug therapy
CPT/HCPCS: 81025; 88305; 43239; J2405; J2704